=== PATIENT | male | born 1985 | race Caucasian/White ===

== ENCOUNTER 2016-09-19 18:54 | Emergency (ER) | payer SELFPAY ==
[~2016-09-19] VITALS: Ht 180.3 cm; Wt 92.1 kg
[2016-09-19 18:57] VITALS: TEMP 36.7; Ht 180.3 cm; Wt 92.1 kg
[2016-09-19] MEDS ORDERED: ALBUT/IPRATROP 3MG/0.5MG NEB 3 ML VIAL INH STA (19:11)
[2016-09-19] MEDS ORDERED: AZITHROMYCIN 250 MG TAB PO ONE (19:15)
--- NOTE | 2016-09-19 19:16 | EMERGENCY ROOM VISIT NOTE ---
History Report prepared by Scribe: Elis Soto Under the Supervision of: Dr. Reilly Dejesus M.D. First contact with patient: 19:04 Chief Complaint: RESPIRATORY PROBLEMS Stated Complaint: HAVING TROUBLE BREATHING History of Present Illness The patient is a 31 year old male who presents to the Emergency Room with complaints of worsening respiratory problems for the past 1 week. He admits he is a current smoker and tobacco chew user. He smokes approximately 2 packs of cigarettes every week. For the past 1 week, he reports that when he wakes up in the morning, he feels short of breath and starts "sweating and coughing up phlegm". The phlegm is clear to yellow in color. The patient states he has tried using inhalers and breathing treatments with minimal relief. Humidity and moisture in the air seem to worsen his symptoms. He denies any history of seasonal allergies or daily exposure to environmental irritants. The last time he saw his primary care doctor for his symptoms was approximately a year and a half ago. He denies any recent fevers, chills, nausea, vomiting, diarrhea or urinary symptoms. The patient admits to a family history of COPD. 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 A total of ten systems were reviewed and were otherwise negative. Past Medical & Surgical Medical Problems: (1) Acute Bronchitis (2) Anxiety and depression (3) Bipol I, Most Recent Episode (Or Current) Mixed, Moderate (4) Bronchitis (5) Kidney stones Family History COPD (chronic obstructive pulmonary disease) Diabetes mellitus Hypertension Kidney disease Kidney stones Social History Smoking Status: Former Smoker Alcohol Use: occasionally Drug Use: none Marital Status: single Housing Status: lives alone Occupation Status: unemployed Current/Historical Medications Scheduled Azithromycin (Zithromax), 250 MG PO DAILY Prednisone (Prednisone), 0 PO DAILY Scheduled PRN Albuterol (Ventolin Hfa), 2 PUFFS INH QID PRN for Wheezing Albuterol Sulfate (Proair Respiclick), 2 PUFFS PO DAILY PRN for Shortness of Breath Allergies Coded Allergies: Erythromycin (Verified Allergy, Unknown, 09/19/16) Physical Exam Vital Signs Date Time Temp Pulse Resp B/P (MAP) Pulse Ox O2 Delivery O2 Flow Rate FiO2 09/19/16 21:38 86 16 141/99 97 Room Air 09/19/16 19:30 110 16 137/89 96 Room Air 09/19/16 18:57 36.7 115 20 157/86 96 Room Air Physical Exam GENERAL: Awake, alert, well-appearing, in no distress HENT: Normocephalic, atraumatic. Oropharynx unremarkable. Dry mucous membranes. EYES: Normal conjunctiva. Sclera non-icteric. NECK: Supple. No nuchal rigidity. FROM. No JVD. RESPIRATORY: Decreased breath sounds at the bases, scattered wheezes throughout. CARDIAC: Regular rate, normal rhythm. Extremities warm and well perfused. Pulses equal. ABDOMEN: Soft, non-distended. No tenderness to palpation. No rebound or guarding. No masses. RECTAL: Deferred. MUSCULOSKELETAL: Chest examination reveals no tenderness. The back is symmetrical on inspection without obvious abnormality. There is no CVA tenderness to palpation. No joint edema. LOWER EXTREMITIES: Calves are equal size bilaterally and non-tender. No edema. No discoloration. NEURO: Normal sensorium. No sensory or motor deficits noted. SKIN: No rash or jaundice noted. Medical Decision & Procedures ER Provider Diagnostic Interpretation: Radiology results as stated below per my review and radiologist interpretation: CHEST ONE VIEW PORTABLE CLINICAL HISTORY: sob dyspnea COMPARISON STUDY: 01/21/2015 FINDINGS: The bones soft tissues and hemidiaphragms are normal. The cardiomediastinal silhouette is normal. The lungs are clear. The pulmonary vasculature is normal. IMPRESSION: Negative chest. The above report was generated using voice recognition software. It may contain grammatical, syntax or spelling errors. Electronically signed by: Angel Urbina M.D. 09/19/2016 7:30 PM Medications Administered Medications (Trade) Dose Ordered Sig/Corrine Route Start Time Stop Time Status Last Admin Dose Admin Prednisone (PredniSONE TAB) 60 mg NOW STAT PO 09/19/16 19:11 09/19/16 19:16 DC 09/19/16 19:29 60 MG Albuterol/ Ipratropium (Duoneb) 3 ml NOW STAT INH 09/19/16 19:11 09/19/16 19:16 DC 09/19/16 19:29 3 ML Azithromycin (Zithromax Tab) 500 mg NOW ONCE PO 09/19/16 19:15 09/19/16 19:16 DC 09/19/16 19:29 500 MG Albuterol (Ventolin Hfa Inhaler) 2 puffs NOW STAT INH 09/19/16 21:41 09/19/16 21:43 DC 09/19/16 21:58 2 PUFFS ED Course 1904: The patient was evaluated in room C5. A complete history and physical exam was performed. 1910: DuoNeb 3 ml INH, Prednisone 60 mg PO. 1914: Azithromycin 500 mg PO. 2113: Albuterol 2 puffs INH. 2124: I reevaluated the patient. He is feeling much better. I discussed his results and discharge instructions and he verbalized complete understanding and agreement. Medical Decision I reviewed the patient's past medical history, medications, and the nursing notes as described above. The differential diagnoses considered include undiagnosed COPD, smokers cough, pneumonia, bronchitis, pericarditis, ACS and CHF. The patient presents to the emergency department with sob per hpi. On arrival the patient is in NAD. AFVSS. On exam is diminished at bases with scattered wheezes. CXR unremarkable. Denies CP or worse sob when lying flat. No LE edema. Pericarditis,acs,chg not likely. Given duo, steroids, azithro with good effect. Likely undiagnosed copd/bronchitis in setting of longstanding smoking hx. Smoking cessation counseling provided. Findings and plan for follow-up d/w patient. Patient agreeable and d/c'd per discharge instructions. Medication Reconcilliation Current Medication List: was personally reviewed by me Blood Pressure Screening Patient's blood pressure: Elevated blood pressure Blood pressure disposition: Elevated BP felt to be situational Impression Primary Impression: Acute Bronchitis Additional Impression: COPD suggested by initial evaluation Scribe Attestation The scribe's documentation has been prepared under my direction and personally reviewed by me in its entirety. I confirm that the note above accurately reflects all work, treatment, procedures, and medical decision making performed by me. Departure Information Dispostion Home / Self-Care Prescriptions Albuterol (Ventolin Hfa) 60 Puffs/5400 Mcg Aers 2 PUFFS INH QID Y for Wheezing for 5 Days, #1 INHALER 2 Refills every 4-6 hours as needed. Prov: Reilly Dejesus M.D. 09/19/16 Prednisone (Prednisone) 20 Mg Tab 0 PO DAILY for 4 Days, #12 TAB 3 TABS DAILY FOR 2 DAYS, THEN 2 TABS DAILY FOR 2 DAYS, THEN 1 TAB DAILY FOR 2 DAYS, THEN 1/2 TAB DAILY FOR 2 DAYS. Prov: Reilly Dejesus M.D. 09/19/16 Azithromycin (Zithromax) 250 Mg Tab 250 MG PO DAILY, #4 TAB Prov: Reilly Dejesus M.D. 09/19/16 Referrals Erick Ovalles M.D. ([facility]) (PCP) Patient Instructions Bronchitis Acute Dc, COPD, COPD Inhalers, ED Smoking Cessation, [facility] Additional Instructions Please follow up with your primary care physician in the next 1-3 days for reevaluation and pulmonology referral. Otherwise, your exam and chest x-ray did not show signs of an emergent condition at this time. Take albuterol 2 puffs every 4 hours for the next 48 hours and then as needed thereafter. Prednisone and azithromycin daily as directed. Return to the emergency department for worsening symptoms as described in the accompanying instructions. Problem Qualifiers
--- NOTE | 2016-09-19 19:32 | DIAGNOSTIC IMAGING REPORT ---
CHEST ONE VIEW PORTABLE CLINICAL HISTORY: sob dyspnea COMPARISON STUDY: 01/21/2015 FINDINGS: The bones soft tissues and hemidiaphragms are normal. The cardiomediastinal silhouette is normal. The lungs are clear. The pulmonary vasculature is normal. IMPRESSION: Negative chest. The above report was generated using voice recognition software. It may contain grammatical, syntax or spelling errors. Electronically signed by: Angel Urbina M.D. 09/19/2016 7:30 PM Dictated Date/Time: 09/19/2016 7:30 PM
[2016-09-19] MEDS ORDERED: ALBU18002 PO (19:39)
[2016-09-19 21:38] VITALS: BP 141/99; PULSE 86; O2SAT 97
[2016-09-19] MEDS ORDERED: ALBUTEROL HFA 8 GM INHALER INH STA (21:41)
[2016-09-19] MEDS ORDERED: PRED20TA PO (22:00)
[2016-09-19] MEDS ORDERED: AZIT250T PO (22:00)
[2016-09-19] MEDS ORDERED: PRVHFAIN INH (22:00)
== END 2016-09-19 22:01 | disposition home or self-care (01) ==
LOC: C.EDB 18:55 → C.EDC 22:01
DX: J20.9 Acute bronchitis, unspecified (principal); F17.210 Nicotine dependence, cigarettes, uncomplicated; F17.220 Nicotine dependence, chewing tobacco, uncomplicated; Z87.442 Personal history of urinary calculi; Z82.5 Family history of asthma and other chronic lower respiratory diseases; Z83.3 Family history of diabetes mellitus; Z82.49 Family history of ischemic heart disease and other diseases of the circulatory system; Z84.1 Family history of disorders of kidney and ureter

== ENCOUNTER 2016-10-28 18:40 | Emergency (ER) | payer OTHER ==
[~2016-10-28] VITALS: Ht 180.3 cm; Wt 93.7 kg
[~2016-10-28 18:40] MED LIST: ALBU18002 PO; AZIT250T PO; PRVHFAIN INH
[2016-10-28 18:42] VITALS: Ht 180.3 cm; Wt 93.7 kg
[2016-10-28] MEDS ORDERED: SODIUM CHLORIDE 0.9% 1000ML 1,000 ML IV STA (19:08)
[2016-10-28] MEDS ORDERED: CEFTRIAXONE SOD INJ 1 GM ADDVIAL IV STA (19:08)
[2016-10-28] MEDS ORDERED: SULFAMETHOXAZOLE/TRIMETHOPRIM DS 800/160MG TAB PO STA ×2 (19:08→21:23)
[2016-10-28 20:04] LABS: BASO % 0.6 %; BASO ABS # 0.07 K/uL (0-0.2); COMPLETE YES; EOS % 9.7 %; HEMATOCRIT 44.3 % (42-52); IG% 0.2 %; LYMPH % 14.8 %; LYMPH ABS # 1.78 K/uL (1.2-3.4); MEAN CELL VOLUME 89.1 fL (80-100); MEAN CORPUSCULAR HEMOGLOBIN 29.4 pg (25-34); MEAN PLATELET VOLUME 9.5 fL (7.4-10.4); MONO % 5.8 %; NEUT % 68.9 %; PLATELET COUNT 279 K/uL (130-400); RED BLOOD COUNT 4.97 M/uL (4.7-6.1); WHITE BLOOD COUNT 12.03 K/uL (4.8-10.8)
--- NOTE | 2016-10-28 20:15 | DIAGNOSTIC IMAGING REPORT ---
CHEST ONE VIEW PORTABLE CLINICAL HISTORY: 31 years-old Male presenting with EVALUATE WEAKNESS. TECHNIQUE: Portable upright AP view of the chest was obtained. COMPARISON: 09/19/2016. FINDINGS: Cardiomediastinal silhouette normal. Lungs and pleural spaces clear. Osseous structures normal. Upper abdomen normal. IMPRESSION: 1. No acute cardiopulmonary disease. Electronically signed by: Kai Rice M.D. 10/28/2016 8:13 PM Dictated Date/Time: 10/28/2016 8:13 PM
[2016-10-28 20:17] LABS: ALT/SGPT 35 U/L (12-78); BLOOD UREA NITROGEN 14 mg/dl (7-18); BUN/CREATININE RATIO 9.8 (10-20); CALCIUM 9.6 mg/dl (8.5-10.1); CARBON DIOXIDE 30 mmol/L (21-32); CHLORIDE 100 mmol/L (98-107); GLUCOSE 108 mg/dl (70-99); MAGNESIUM 2.2 mg/dl (1.8-2.4); POTASSIUM 3.7 mmol/L (3.5-5.1); SODIUM 136 mmol/L (136-145)
[2016-10-28 20:27] LABS: ALKALINE PHOSPHATASE 116 U/L (45-117); AST/SGOT 29 U/L (15-37); THYROID STIMULATING HORMONE 0.404 uIu/ml (0.300-4.500)
[2016-10-28] MEDS ORDERED: SULF800T23 PO (21:29)
[2016-10-28] MEDS ORDERED: CEPH500C PO (21:29)
[2016-10-28] MEDS ORDERED: CEPHALEXIN MONOHYDRATE 250 MG CAP PO ONE (21:30)
[2016-10-28 21:46] VITALS: BP 153/94; PULSE 103; TEMP 36.7; O2SAT 99
--- NOTE | 2016-10-29 00:01 | EMERGENCY ROOM VISIT NOTE ---
History Report prepared by Deepakibtomasa: Elis Soto Under the Supervision of: Dr. Heath Sanchez M.D. First contact with patient: 18:49 Chief Complaint: WOUND INFECTION Stated Complaint: BITE INFECTED History of Present Illness The patient is a 31 year old male who presents to the Emergency Room with complaints of a possible wound infection on his left upper arm. He states "I think something bit me, but I'm not sure what". The bite appeared approximately 3 days ago and has become increasingly red and swollen over the past few days. He has been able to get some clear, minimally yellow drainage out when he squeezes the area. He rates his discomfort as a 1/10 and reports an over the counter salve has provided minor relief. This morning he felt nauseous but did not vomit. The patient admits to a history of IV drug use for the past month and a half but states he has not injected drugs in the past 3 days. He also admits to some "chest soreness" for the past day. He denies any LOC, headache, fevers, chills, diaphoresis, visual changes, neck pain, breathing difficulties, abdominal pain, back pain, melena, hematochezia, urinary symptoms, numbness, weakness, lymphadenopathy, rash, or other complaints. 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 A total of ten systems were reviewed and were otherwise negative. Past Medical & Surgical Medical Problems: (1) Acute Bronchitis (2) Anxiety and depression (3) Bipol I, Most Recent Episode (Or Current) Mixed, Moderate (4) Bronchitis (5) Kidney stones Family History COPD (chronic obstructive pulmonary disease) Diabetes mellitus Hypertension Kidney disease Kidney stones Social History Smoking Status: Former Smoker Alcohol Use: occasionally Drug Use: none Marital Status: single Housing Status: lives alone Occupation Status: unemployed Current/Historical Medications Scheduled Cephalexin Monohydrate (Keflex), 500 MG PO QID Sulfa/Trimethoprim (Bactrim Ds 800MG/160MG), 1 TAB PO BID Scheduled PRN Albuterol (Ventolin Hfa), 2 PUFFS INH QID PRN for Wheezing Albuterol Sulfate (Proair Respiclick), 2 PUFFS PO DAILY PRN for Shortness of Breath Allergies Coded Allergies: Erythromycin (Verified Allergy, Unknown, 10/28/16) Physical Exam Vital Signs Date Time Temp Pulse Resp B/P (MAP) Pulse Ox O2 Delivery O2 Flow Rate FiO2 10/28/16 21:46 36.7 103 18 153/94 99 10/28/16 20:32 106 18 138/81 98 Room Air 10/28/16 19:40 97 10/28/16 18:42 36.7 125 17 154/81 95 Room Air Physical Exam GENERAL: Awake, alert, well-appearing, in no distress HENT: Normocephalic, atraumatic. Oropharynx unremarkable. EYES: Normal conjunctiva. Sclera non-icteric. NECK: Supple. No nuchal rigidity. FROM. No JVD. RESPIRATORY: Clear to auscultation. CARDIAC: Tachycardic heart rate, normal rhythm. Extremities warm and well perfused. Pulses equal. ABDOMEN: Soft, non-distended. No tenderness to palpation. No rebound or guarding. No masses. RECTAL: Deferred. MUSCULOSKELETAL: Chest examination reveals no tenderness. The back is symmetrical on inspection without obvious abnormality. There is no CVA tenderness to palpation. No joint edema. LOWER EXTREMITIES: Calves are equal size bilaterally and non-tender. No edema. No discoloration. NEURO: Normal sensorium. No sensory or motor deficits noted. SKIN: Red, round patch to the left triceps area, scabbed area in the center, minimal induration. No rash or jaundice noted. Track johns at the base of left arm. Medical Decision & Procedures ER Provider Diagnostic Interpretation: Radiology results as stated below per my review and radiologist interpretation: CHEST ONE VIEW PORTABLE CLINICAL HISTORY: 31 years-old Male presenting with EVALUATE WEAKNESS. TECHNIQUE: Portable upright AP view of the chest was obtained. COMPARISON: 09/19/2016. FINDINGS: Cardiomediastinal silhouette normal. Lungs and pleural spaces clear. Osseous structures normal. Upper abdomen normal. IMPRESSION: 1. No acute cardiopulmonary disease. Electronically signed by: Kai Rice M.D. 10/28/2016 8:13 PM Laboratory Results 10/28/16 19:45 Red Blood Count 4.97, Mean Corpuscular Volume 89.1, Mean Corpuscular Hemoglobin 29.4, Mean Corpuscular Hemoglobin Concent 33.0, Mean Platelet Volume 9.5, Neutrophils (%) (Auto) 68.9, Lymphocytes (%) (Auto) 14.8, Monocytes (%) (Auto) 5.8, Eosinophils (%) (Auto) 9.7, Basophils (%) (Auto) 0.6, Neutrophils # (Auto) 8.28, Lymphocytes # (Auto) 1.78, Monocytes # (Auto) 0.70, Eosinophils # (Auto) 1.17, Basophils # (Auto) 0.07 10/28/16 19:45 Test 10/28/16 19:45 White Blood Count 12.03 K/uL (4.8-10.8) Red Blood Count 4.97 M/uL (4.7-6.1) Hemoglobin 14.6 g/dL (14.0-18.0) Hematocrit 44.3 % (42-52) Mean Corpuscular Volume 89.1 fL (80-100) Mean Corpuscular Hemoglobin 29.4 pg (25-34) Mean Corpuscular Hemoglobin Concent 33.0 g/dl (32-36) Platelet Count 279 K/uL (130-400) Mean Platelet Volume 9.5 fL (7.4-10.4) Neutrophils (%) (Auto) 68.9 % Lymphocytes (%) (Auto) 14.8 % Monocytes (%) (Auto) 5.8 % Eosinophils (%) (Auto) 9.7 % Basophils (%) (Auto) 0.6 % Neutrophils # (Auto) 8.28 K/uL (1.4-6.5) Lymphocytes # (Auto) 1.78 K/uL (1.2-3.4) Monocytes # (Auto) 0.70 K/uL (0.11-0.59) Eosinophils # (Auto) 1.17 K/uL (0-0.5) Basophils # (Auto) 0.07 K/uL (0-0.2) RDW Standard Deviation 39.7 fL (36.4-46.3) RDW Coefficient of Variation 12.3 % (11.5-14.5) Immature Granulocyte % (Auto) 0.2 % Immature Granulocyte # (Auto) 0.03 K/uL (0.00-0.02) Anion Gap 6.0 mmol/L (3-11) Est Creatinine Clear Calc Drug Dose 89.4 ml/min Estimated GFR () 77.0 Estimated GFR (Non- 66.5 BUN/Creatinine Ratio 9.8 (10-20) Calcium Level 9.6 mg/dl (8.5-10.1) Magnesium Level 2.2 mg/dl (1.8-2.4) Total Bilirubin 0.4 mg/dl (0.2-1) Direct Bilirubin 0.1 mg/dl (0-0.2) Aspartate Amino Transf (AST/SGOT) 29 U/L (15-37) Alanine Aminotransferase (ALT/SGPT) 35 U/L (12-78) Alkaline Phosphatase 116 U/L (45-117) Troponin I < 0.015 ng/ml (0-0.045) Total Protein 7.3 gm/dl (6.4-8.2) Albumin 3.9 gm/dl (3.4-5.0) Thyroid Stimulating Hormone (TSH) 0.404 uIu/ml (0.300-4.500) Laboratory results reviewed by me Medications Administered Medications (Trade) Dose Ordered Sig/Corrine Route Start Time Stop Time Status Last Admin Dose Admin Sodium Chloride 1,000 ml @ 999 mls/hr Q1H1M STAT IV 10/28/16 19:08 10/28/16 20:08 DC 10/28/16 20:10 999 MLS/HR Ceftriaxone Sodium (Rocephin Inj) 1 gm NOW STAT IV 10/28/16 19:08 10/28/16 19:12 DC 10/28/16 20:10 1 GM Trimethoprim/ Sulfamethoxazole (Septra Ds 800/ 160MG Tab) 1 tab NOW STAT PO 10/28/16 19:08 10/28/16 19:12 DC 10/28/16 20:10 1 TAB Trimethoprim/ Sulfamethoxazole (Septra Ds 800/ 160MG Tab) 1 tab NOW STAT PO 10/28/16 21:23 10/28/16 21:25 DC 10/28/16 21:41 1 TAB Cephalexin Monohydrate (Keflex Cap) 500 mg NOW ONCE PO 10/28/16 21:30 10/28/16 21:31 DC 10/28/16 21:42 500 MG ECG Indication: chest pain Rate (beats per minute): 108 Rhythm: sinus tachycardia Findings: no acute ischemic change, no ectopy ED Course 190: The patient was evaluated in room C2. A complete history and physical exam was performed. 1907: Septra Ds 800/160 mg 1 tab PO, Rocephin 1 gm IV, NSS 1000 ml @ 999 mls/hr IV. 2111: I reevaluated the patient. His redness is slightly improved and he feels well. I discussed his results and discharge instructions and he verbalized complete understanding and agreement. 2122: Septra Ds 800/160 mg 1 tab PO. 2129: Keflex 500 mg PO. Medical Decision Triage Nursing notes reviewed and agree them. The patient's history was concerning for swelling and redness of the skin. Differential diagnosis: Etiologies such as cellulitis, DVT, necrotizing fasciitis, abscess, MRSA infection, dermatitis, drug eruption, pneumonia, cardiac sources, as well as others were entertained.. Physical examination: The physical examination was consistent with cellulitis. No fluctuance. The patient and already lanced the area with a knife at home. ER treatment provided: IV saline hydration IV Rocephin Bactrim On reassessment the patient felt better. The redness improved. The patient had a decrease in his heart rate. Diagnostics interpreted by me: The labs revealed a mild leukocytosis on CBC. Chemistry panel unremarkable. Troponin negative. A single troponin was done as the patient has had chest discomfort for the entire day. ECG revealed a sinus tachycardia without ischemia. No pericarditis. Imaging studies: Chest x-ray as above. This appears to be isolated cellulitis. The patient has a history of IV drug abuse. He will be treated with Bactrim and Keflex. There is no fluctuance to warrant incision and drainage at this time. If he worsens he will be back. He will also follow up with his primary physician first thing next week. I did ask him to discuss his drug use with his primary physician as he states he has not notified him yet. The patient was counseled. I gave my usual and customary discussion regarding this issue. By the evaluation outlined above emergent etiologies such as abscess, necrotizing fasciitis, DVT, as well as others were deemed relatively unlikely. The patient was informed about the findings as listed above. All questions were answered and he was pleased with the treatment. Return instructions were outlined and the patient was discharged in stable condition. Outpatient prescription management: Keflex Bactrim Referral: The patient was referred back to his primary care physician for follow-up in 2 to 3 days for a recheck of the current condition. Medication Reconcilliation Current Medication List: was personally reviewed by me Blood Pressure Screening Patient's blood pressure: Normal blood pressure Blood pressure disposition: Did not require urgent referral Impression Primary Impression: Cellulitis Additional Impression: IVDU (intravenous drug user) Scribe Attestation The scribe's documentation has been prepared under my direction and personally reviewed by me in its entirety. I confirm that the note above accurately reflects all work, treatment, procedures, and medical decision making performed by me. Departure Information Dispostion Home / Self-Care Prescriptions Sulfa/Trimethoprim (Bactrim Ds 800MG/160MG) Tab 1 TAB PO BID, #18 TAB Prov: Heath Sanchez MD 10/28/16 Cephalexin Monohydrate (Keflex) 500 Mg Cap 500 MG PO QID, #39 CAP Prov: Heath Sanchez MD 10/28/16 Referrals Erick Ovalles M.D. ([facility]) (PCP) Patient Instructions Cellulitis - [facility], ED Drug Abuse General, [facility] Additional Instructions CELLULITIS INSTRUCTIONS: Cephalexin(Keflex) 500mg: Take one pill four times daily for 10 days for your skin infection. All antibiotics can cause diarrhea. If this occurs and you feel worse or it does not resolve in 1-2 days follow up with your doctor or return to the Emergency Department as this could be signs of serious underlying problems. Any medication can cause an allergic reaction, stop the pills immediately and return to the ER for rash, hives, breathing difficulties, or swelling. Trimethoprim-Sulfamethoxazole(Bactrim DS): Take one pill twice daily for 10 days for your skin infection. All antibiotics can cause diarrhea. If this occurs and you feel worse or it does not resolve in 1-2 days follow up with your doctor or return to the Emergency Department as this could be signs of serious underlying problems. Any medication can cause an allergic reaction, stop the pills immediately and return to the ER for rash, hives, breathing difficulties, or swelling. Ibuprofen(Motrin, Advil) may be used for fever or pain. Use 600mg every six hours as needed. Take with food. Avoid using more than 2400mg in a 24 hour period. Do not use 2400mg per day for more than three consecutive days without physician direction. Prolonged inappropriate use can lead to stomach upset or ulcers. (AND/OR) Acetaminophen(Tylenol) may be used for fever or pain. Use 1000mg every six hours as needed. Avoid using more than 4000mg in a 24 hour period. Warm compresses to the affected area 4 times daily for 15-20 minutes. Rest and drink plenty of fluids. Refrain from any additional drug use. Return to the ER for severe pain, persistent fevers, spreading redness, or any worsening of your condition. Follow up with your primary physician Monday for a recheck of the current condition. Problem Qualifiers
== END 2016-10-28 21:46 | disposition home or self-care (01) ==
LOC: C.EDB 18:41 → C.EDC 21:46
DX: L03.114 Cellulitis of left upper limb (principal); F19.10 Other psychoactive substance abuse, uncomplicated; Z87.442 Personal history of urinary calculi; Z87.891 Personal history of nicotine dependence; Z83.3 Family history of diabetes mellitus; Z82.49 Family history of ischemic heart disease and other diseases of the circulatory system; Z84.1 Family history of disorders of kidney and ureter; Z82.5 Family history of asthma and other chronic lower respiratory diseases

== ENCOUNTER 2017-03-10 08:44 | Emergency (ER) | payer OTHER ==
[~2017-03-10] VITALS: Ht 180.3 cm; Wt 101.5 kg
[~2017-03-10 08:44] MED LIST changes: -AZIT250T PO; +CEPH500C PO; +SULF800T23 PO
[2017-03-10 08:50] VITALS: TEMP 36.6; Ht 180.3 cm; Wt 101.5 kg
[2017-03-10 09:29] LABS: HEMATOCRIT 43.7 % (42-52); HEMOGLOBIN 15.2 g/dL (14.0-18.0); MEAN CELL VOLUME 87.6 fL (80-100); MEAN CORPUSCULAR HEMOGLOBIN 30.5 pg (25-34); MEAN CORPUSCULAR HGB CONC 34.8 g/dl (32-36); MEAN PLATELET VOLUME 9.6 fL (7.4-10.4); PLATELET COUNT 221 K/uL (130-400); RED CELL DISTRIBUTION WIDTH CV 13.2 % (11.5-14.5); RED CELL DISTRIBUTION WIDTH SD 41.8 fL (36.4-46.3); WHITE BLOOD COUNT 8.09 K/uL (4.8-10.8)
[2017-03-10] MEDS ORDERED: SODIUM CHLORIDE 0.9% 1000ML 1,000 ML IV STA (09:37)
[2017-03-10] MEDS ORDERED: HYDROmorphone INJ 1 MG/ML SYR IV STA ×2 (09:37→10:13)
[2017-03-10] MEDS ORDERED: ONDANSETRON INJ 2 MG/ML 2 ML VIAL IV STA (09:37)
[2017-03-10 09:39] LABS: CALCIUM 9.8 mg/dl (8.5-10.1); CREATININE 1.4 mg/dl (0.60-1.40); POTASSIUM 3.7 mmol/L (3.5-5.1)
--- NOTE | 2017-03-10 09:43 | EMERGENCY ROOM VISIT NOTE ---
History Report prepared by Kortney: Reza Acuna Under the Supervision of: Dr. Ela Stallings M.D. First contact with patient: 09:34 Chief Complaint: ABDOMINAL PAIN Stated Complaint: ABDOMINAL PAIN Nursing Triage Summary: Pain 10/10 right flank since 0600. Difficulty urinating x2 days. Retention, urgency, and not emptying bladder properly. Hx kidney stones. History of Present Illness The patient is a 31 year old male who presents to the Emergency Room with complaints of severe and constant right lower quadrant abdominal pain that began this morning at 0600, 3.5 hours prior to arrival. The patient states that he had a 30 minute episode of the same pain last night, which resolved spontaneously. He also mentioned that he has been having increased urinary urgency, but has been having a difficult time voiding. He feels the need to go, but only gets out a few drops. There is some burning when he is able to void, but he denies any discharge. He denies any fevers or vomiting, but he is nauseous. The patient admits to using IV-meth yesterday. 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 A total of 10 systems reviewed and were otherwise negative. Past Medical & Surgical Medical Problems: (1) Acute Bronchitis (2) Anxiety and depression (3) Bipol I, Most Recent Episode (Or Current) Mixed, Moderate (4) Bronchitis (5) Kidney stones Family History COPD (chronic obstructive pulmonary disease) Diabetes mellitus Hypertension Kidney disease Kidney stones Social History Smoking Status: Never Smoker Alcohol Use: occasionally Drug Use: none Marital Status: single Housing Status: lives alone Occupation Status: unemployed Current/Historical Medications Scheduled PRN Albuterol (Ventolin Hfa), 2 PUFFS INH QID PRN for Wheezing Hydrocodone/Acetaminophen 5MG/325MG (Comins 5MG/325MG), 1 TABLET PO Q6 PRN for Pain Allergies Coded Allergies: Erythromycin (Verified Allergy, Unknown, 03/10/17) Physical Exam Vital Signs Date Time Temp Pulse Resp B/P (MAP) Pulse Ox O2 Delivery O2 Flow Rate FiO2 03/10/17 12:02 112 18 148/99 96 Room Air 03/10/17 08:50 36.6 88 20 158/96 94 Room Air Physical Exam Vital signs reviewed. General: Patient appears to be in pain and is uncomfortable. HEENT: No scleral icterus, PERRLA, neck supple. Atraumatic. Cardiovascular: Regular rate and rhythm, no extra sounds. Pulmonary: Clear to auscultation bilaterally, normal work of breathing. Abdomen: Soft, nontender, nondistended, positive bowel sounds. Musculoskeletal: Atraumatic, no peripheral edema. No CVA tenderness. Neurologic: Patient awake alert and oriented x 3 Skin: Warm, dry, no rash Medical Decision & Procedures ER Provider Diagnostic Interpretation: Radiology results as stated below per my review and radiologist interpretation: ABD/PELVIS NO IV OR ORAL CONT CT DOSE: 967.73 mGycm HISTORY: Flank pain R flank pain, unable to void TECHNIQUE: Multiaxial CT images of the abdomen and pelvis were performed without contrast. A dose lowering technique was utilized adhering to the principles of ALARA. COMPARISON STUDY: 06/18/2008 FINDINGS: Lung bases are clear. Liver spleen and pancreas are unremarkable. Gallbladder is negative for distention. Bilateral nephrocalcinosis is present and is progressive compared to the prior study of 2008. Mild right hydroureteronephrosis. 3.5 mm obstructing calculus distal right ureter immediately proximal to the right ureterovesical junction. Bladder is relatively collapsed. Bowel pattern is considered nonobstructive. The appendix is normal. IMPRESSION: 1. Obstructing 3.5 mm calculus distal right ureter immediately proximal to the right ureterovesical junction. 2. Mild right hydroureteronephrosis. 3. Bilateral nephrocalcinosis progressive compared to the prior exam. The above report was generated using voice recognition software. It may contain grammatical, syntax or spelling errors. Electronically signed by: Angel Urbina M.D. 03/10/2017 10:14 AM Dictated Date/Time: 03/10/2017 10:11 AM Laboratory Results 03/10/17 09:10 03/10/17 09:10 Test 03/10/17 09:10 03/10/17 09:15 Red Blood Count 4.99 M/uL (4.7-6.1) Mean Corpuscular Volume 87.6 fL (80-100) Mean Corpuscular Hemoglobin 30.5 pg (25-34) Mean Corpuscular Hemoglobin Concent 34.8 g/dl (32-36) RDW Standard Deviation 41.8 fL (36.4-46.3) RDW Coefficient of Variation 13.2 % (11.5-14.5) Mean Platelet Volume 9.6 fL (7.4-10.4) Anion Gap 11.0 mmol/L (3-11) Est Creatinine Clear Calc Drug Dose 92.7 ml/min Estimated GFR () 77.0 Estimated GFR (Non- 66.5 BUN/Creatinine Ratio 11.8 (10-20) Calcium Level 9.8 mg/dl (8.5-10.1) Urine Color DK YELLOW Urine Appearance CLEAR (CLEAR) Urine pH 5.0 (4.5-7.5) Urine Specific [place] 1.037 (1.000-1.030) Urine Protein 2+ (NEG) Urine Glucose (UA) NEG (NEG) Urine Ketones 3+ (NEG) Urine Occult Blood 3+ (NEG) Urine Nitrite NEG (NEG) Urine Bilirubin NEG (NEG) Urine Urobilinogen NEG (NEG) Urine Leukocyte Esterase NEG (NEG) Urine WBC (Auto) 1-5 /hpf (0-5) Urine RBC (Auto) >30 /hpf (0-4) Urine Hyaline Casts (Auto) 1-5 /lpf (0-5) Urine Epithelial Cells (Auto) 20-30 /lpf (0-5) Urine Bacteria (Auto) NEG (NEG) Laboratory results per my review. Medications Administered Medications (Trade) Dose Ordered Sig/Corrine Route Start Time Stop Time Status Last Admin Dose Admin Sodium Chloride 1,000 ml @ 999 mls/hr Q1H1M STAT IV 03/10/17 09:37 03/10/17 10:37 DC 03/10/17 09:47 999 MLS/HR Hydromorphone HCl (Dilaudid Inj) 1 mg NOW STAT IV 03/10/17 09:37 03/10/17 09:39 DC 03/10/17 09:47 1 MG Ondansetron HCl (Zofran Inj) 4 mg NOW STAT IV 03/10/17 09:37 03/10/17 09:39 DC 03/10/17 09:47 4 MG Hydromorphone HCl (Dilaudid Inj) 1 mg NOW STAT IV 03/10/17 10:13 03/10/17 10:15 DC 03/10/17 10:20 1 MG ED Course 0937: Past medical records reviewed. The patient was evaluated in room C1B. A complete history and physical examination was performed. 0937: Ordered Zofran 4 mg IV, Dilaudid 1 mg IV, Sodium Chloride 1000 mL @ 999 mL /hr IV. 1013: Ordered Dilaudid 1 mg IV. 1142: Upon reevaluation, the patient appeared to have improvement of his symptoms. I discussed findings with him. He verbalized agreement of the treatment plan. The Patient was discharged home. Medical Decision Differential diagnosis: Etiologies such as renal colic, appendicitis, diverticulitis, mesenteric ischemia, aortic pathology, infections, inflammatory bowel disease, PUD, biliary pathology, UTI, as well as others were entertained. This patient was evaluated and appeared to be in significant discomfort. Physical examination is fairly unrevealing otherwise. Patient was given IV Dilaudid and Zofran. He was hydrated with normal saline solution. CT scan of the abdomen and pelvis reveals a 3.5 mm stone in the distal right ureter. The patient does have nephrolithiasis visualized bilaterally. Urinalysis reveals evidence of blood but no evidence of infection. The patient was informed of the findings. He was referred to Dr. Pardo of urology. He will continue ibuprofen as needed for pain. He was given a prescription for Comins to be used sparingly as needed. Patient will return to the ER for worsening of symptoms or any medical concerns. [place] Drug Monitoring Program Search Results: patient reviewed within database, no issues identified Blood Pressure Screening Patient's blood pressure: Elevated blood pressure Blood pressure disposition: Elevated BP felt to be situational Impression Primary Impression: Right ureteral stone Scribe Attestation The scribe's documentation has been prepared under my direction and personally reviewed by me in its entirety. I confirm that the note above accurately reflects all work, treatment, procedures, and medical decision making performed by me. Departure Information Dispostion Home / Self-Care Prescriptions Hydrocodone/Acetaminophen 5MG/325MG (Comins 5MG/325MG) Tab 1 TABLET PO Q6 Y for Pain, #10 TAB Prov: Ela Stallings M.D. 03/10/17 Referrals Erick Ovalles M.D. ([facility]) (PCP) Forms Call Back Authorization, HOME CARE DOCUMENTATION FORM, IMPORTANT VISIT INFORMATION Patient Instructions My [facility] Additional Instructions Diagnosis: Right ureteral kidney stone Ibuprofen 600 mg every 6 hours as needed for pain with food. Comins one to 2 tabs every 6 hours as needed for severe pain. Do not drive after taking this medication. Do not use Tylenol with this medication. Drink plan clear fluids. Follow-up with urology, Dr. Pardo, within the next week if symptoms persist. Return to the ER for worsening of symptoms, fever or any medical concerns.
--- NOTE | 2017-03-10 10:16 | DIAGNOSTIC IMAGING REPORT ---
ABD/PELVIS NO IV OR ORAL CONT CT DOSE: 967.73 mGycm HISTORY: Flank pain R flank pain, unable to void TECHNIQUE: Multiaxial CT images of the abdomen and pelvis were performed without contrast. A dose lowering technique was utilized adhering to the principles of ALARA. COMPARISON STUDY: 06/18/2008 FINDINGS: Lung bases are clear. Liver spleen and pancreas are unremarkable. Gallbladder is negative for distention. Bilateral nephrocalcinosis is present and is progressive compared to the prior study of 2008. Mild right hydroureteronephrosis. 3.5 mm obstructing calculus distal right ureter immediately proximal to the right ureterovesical junction. Bladder is relatively collapsed. Bowel pattern is considered nonobstructive. The appendix is normal. IMPRESSION: 1. Obstructing 3.5 mm calculus distal right ureter immediately proximal to the right ureterovesical junction. 2. Mild right hydroureteronephrosis. 3. Bilateral nephrocalcinosis progressive compared to the prior exam. The above report was generated using voice recognition software. It may contain grammatical, syntax or spelling errors. Electronically signed by: Angel Urbina M.D. 03/10/2017 10:14 AM Dictated Date/Time: 03/10/2017 10:11 AM
[2017-03-10] MEDS ORDERED: HYDR-5688 PO (11:32)
[2017-03-10 12:02] VITALS: BP 148/99; PULSE 112; O2SAT 96
== END 2017-03-10 12:14 | disposition home or self-care (01) ==
LOC: C.EDB 08:46 → C.EDC 12:14
DX: N21.1 Calculus in urethra (principal); F41.9 Anxiety disorder, unspecified; F32.9 Major depressive disorder, single episode, unspecified; F31.9 Bipolar disorder, unspecified; Z83.3 Family history of diabetes mellitus; Z82.49 Family history of ischemic heart disease and other diseases of the circulatory system

== ENCOUNTER 2017-03-13 13:56 | Emergency (ER) | payer OTHER ==
[~2017-03-13] VITALS: Ht 180.3 cm; Wt 98.1 kg
[~2017-03-13 13:56] MED LIST changes: -ALBU18002 PO; -CEPH500C PO; +HYDR-5688 PO; -SULF800T23 PO
[2017-03-13 14:25] VITALS: TEMP 37; Ht 180.3 cm; Wt 98.1 kg
--- NOTE | 2017-03-13 15:14 | DIAGNOSTIC IMAGING REPORT ---
R WRIST W/NAVICULAR MIN 3 VIEWS, R HAND MIN 3 VIEWS ROUTINE CLINICAL HISTORY: 31 years-old Male presenting with R hand pain s/p fall. TECHNIQUE: Frontal, bilateral oblique, scaphoid, and lateral views of the right wrist as well as frontal, oblique, and lateral views of the right hand were obtained. COMPARISON: None. FINDINGS: Right wrist: Osseous excrescence arising from the distal ulna is slightly directed towards the joint and is incompletely characterized regarding potential continuity with the medullary cavity. This is indeterminate but may represent an osteochondroma. No acute fracture or malalignment. No degenerative change. Right hand: Minimally displaced extra articular fracture of the base of the fifth metacarpal. Overlying soft tissue swelling noted. No malalignment at the fifth carpometacarpal articulation. Slight apex dorsal angulation. IMPRESSION: 1. Minimally displaced extra articular fracture of the base of the fifth metacarpal with minimal apex dorsal angulation. 2. No acute osseous injury of the right wrist. Electronically signed by: Kai Rice M.D. 03/13/2017 3:13 PM Dictated Date/Time: 03/13/2017 3:10 PM
--- NOTE | 2017-03-13 16:03 | EMERGENCY ROOM VISIT NOTE ---
History First contact with patient: 14:31 Chief Complaint: HAND PAIN/INJURY Stated Complaint: FELL OFF A TRUCK TAILGATE - HIT HAND History of Present Illness The patient is a 31 year old male who presents to the Emergency Room with complaints of "fell off a truck tibia, hand". The patient states that this morning he fell from a tailgate and injured his right hand. He notes pain in the dorsal aspect of the palmar aspect base of the right fourth and fifth digit. He rates the pain as a 7/10. He notes no numbness or tingling. Review of Systems A complete 6-point Review of Systems was discussed with the patient, with pertinent positives and negatives listed in the History of Present Illness. All remaining Review of Systems questions can be considered negative unless otherwise specified. Past Medical/Surgical History Medical Problems: (1) Acute Bronchitis (2) Anxiety and depression (3) Bipol I, Most Recent Episode (Or Current) Mixed, Moderate (4) Bronchitis (5) Kidney stones Family History COPD (chronic obstructive pulmonary disease) Diabetes mellitus Hypertension Kidney disease Kidney stones Social History Smoking Status: Light Tobacco Smoker Alcohol Use: occasionally Drug Use: none Marital Status: single Housing Status: lives alone Occupation Status: unemployed Current/Historical Medications Scheduled PRN Albuterol (Ventolin Hfa), 2 PUFFS INH QID PRN for Wheezing Hydrocodone/Acetaminophen 5MG/325MG ([place] 5MG/325MG), 1 TABLET PO Q6 PRN for Pain Hydrocodone/Acetaminophen 5MG/325MG ([place] 5MG/325MG), 1-2 TABLET PO Q4H PRN for Pain Physical Exam Vital Signs Date Time Temp Pulse Resp B/P (MAP) Pulse Ox O2 Delivery O2 Flow Rate FiO2 03/13/17 16:15 91 18 159/89 98 03/13/17 14:25 37.0 104 16 172/96 97 Room Air Physical Exam VITAL SIGNS - Vital signs and nursing notes were reviewed. Stable. GENERAL - 31-year-old male appearing his stated age who is in no acute distress. Communicates well with provider and answers questions appropriately. EXTREMITIES - No clubbing or peripheral cyanosis. No pretibial edema present.R hand edema and tenderness over base of 4th adn 5th metacarpal. +5/5 strength noted in UE/LE bilaterally. Medical Decision & Procedures ER Provider Diagnostic Interpretation: R WRIST W/NAVICULAR MIN 3 VIEWS, R HAND MIN 3 VIEWS ROUTINE CLINICAL HISTORY: 31 years-old Male presenting with R hand pain s/p fall. TECHNIQUE: Frontal, bilateral oblique, scaphoid, and lateral views of the right wrist as well as frontal, oblique, and lateral views of the right hand were obtained. COMPARISON: None. FINDINGS: Right wrist: Osseous excrescence arising from the distal ulna is slightly directed towards the joint and is incompletely characterized regarding potential continuity with the medullary cavity. This is indeterminate but may represent an osteochondroma. No acute fracture or malalignment. No degenerative change. Right hand: Minimally displaced extra articular fracture of the base of the fifth metacarpal. Overlying soft tissue swelling noted. No malalignment at the fifth carpometacarpal articulation. Slight apex dorsal angulation. IMPRESSION: 1. Minimally displaced extra articular fracture of the base of the fifth metacarpal with minimal apex dorsal angulation. 2. No acute osseous injury of the right wrist. Electronically signed by: Kai Rice M.D. 03/13/2017 3:13 PM Dictated Date/Time: 03/13/2017 3:10 PM Medical Decision Patient was seen and evaluated as above. He presents to us today with hand pain. It is on the right hand. X-ray reveals fracture. He'll be referred orthopedics post or gutter splinting here. He'll be given [place] for pain. Review of the [employer] drug monitoring system reveals a recent prescription with this was for kidney stones which was verified. He is to follow with Dr. Matthew. He was educated upon management, educated upon worrisome symptoms which to return, had worsened in spite of discharge, and was discharged home in good condition. In the evaluation and treatment of this patient, the following differential diagnoses were considered: Wrist Sprain, Wrist Fracture, Wrist Dislocation, Scapholunate Dissociation, Carpal Fracture, Metacarpal Fracture, Radial Styloid Process Fracture, Ulnar Styloid Process Fracture, or Carpal Tunnel Syndrome. Impression Primary Impression: Hand fracture Departure Information Dispostion Home / Self-Care Condition GOOD Prescriptions Hydrocodone/Acetaminophen 5MG/325MG ([place] 5MG/325MG) Tab 1-2 TABLET PO Q4H Y for Pain, #15 TAB For Initial Treatment Prov: Galen Rae, SETH 03/13/17 Referrals Erick Ovalles M.D.([facility]) (PCP) Heath Matthew, Leonela Calvillo MD Patient Instructions My [facility] Additional Instructions You have been treated in the Emergency Department for Wrist Pain. You have been prescribed [place] to be used for pain control. This is a narcotic medication. You cannot drive or consume alcohol while on this medicine. This medicine should only be used for pain that cannot be controlled with over-the- counter pain medicines. For pain control, you can use the following onxj-djj-umwtort medicines: - Regular strength (325mg/tab) Tylenol (acetaminophen) 2 tabs every 4-6 hours as needed. Do not exceed 12 tablets in a 24 hour period. Avoid taking more than 3 grams (3000 mg) of Tylenol per day. This includes any other sources of acetaminophen you may take on a regular basis. Please no tylenol with this. - Regular strength (200 mg/tab) Advil (ibuprofen) 1-2 tabs every 4-6 hours as needed. Do not exceed a dose of 3200 mg per day. If this is a recent injury (<24 hrs), ice can be applied to the area of pain for the first 3 days to help decrease pain and inflammation. You have been provided the number for an Orthopaedic Surgeon. You should call this number as soon as possible to establish a follow-up visit from today's Emergency Department visit. Keep the brace/splint in place until evaluated by Orthopedics. Return to the Emergency Department if your current symptoms worsen despite treatment course outlined above, or if you develop any of the following symptoms : intractable pain despite aforementioned treatment course or new onset of numbness or tingling of the fingers.
[2017-03-13] MEDS ORDERED: HYDR-5688 PO (16:04)
[2017-03-13 16:15] VITALS: BP 159/89; PULSE 91; O2SAT 98
== END 2017-03-13 16:13 | disposition home or self-care (01) ==
LOC: C.EDB 13:57 → C.EDD 16:13
DX: S62.316A Displaced fracture of base of fifth metacarpal bone, right hand, initial encounter for closed fracture (principal); W17.89XA Other fall from one level to another, initial encounter; Y92.89 Other specified places as the place of occurrence of the external cause; F32.9 Major depressive disorder, single episode, unspecified; F41.9 Anxiety disorder, unspecified; F31.9 Bipolar disorder, unspecified; Z87.442 Personal history of urinary calculi; Z83.3 Family history of diabetes mellitus; Z82.49 Family history of ischemic heart disease and other diseases of the circulatory system; Z84.1 Family history of disorders of kidney and ureter; Z83.6 Family history of other diseases of the respiratory system; Z72.0 Tobacco use

== ENCOUNTER → 2017-04-12 | Outpatient (CLI) | payer OTHER | END | disposition home or self-care (01) | LOC: C.RDSM 19:28 | PROVIDERS: ATTEND Family Medicine Sports Medicine | DX: S62.91XA Unspecified fracture of right hand, initial encounter for closed fracture (principal); X58.XXXA Exposure to other specified factors, initial encounter ==

== ENCOUNTER 2019-01-24 08:48 | Observation (INO) ==
--- NOTE | 2018-12-24 13:31 | Anesthesiology Consultation ---
Date of Service December 24, 2018 Assessment & Plan (1) Encounter for pre-operative examination: Chart Review Chart Review: Acceptable Risk for Surgery History Surgery Operation Date: 12/31/18 12:20 Proposed Procedures p L4-L5 Discectomy - Heath Matthew DO Height/Weight Height: 5 ft 11 in Weight: 88.451 kg Allergies Allergy/AdvReac Type Severity Reaction Status Date / Time erythromycin base Allergy Mild Rash Verified 12/21/18 09:24 Medications Home Medications Medication Instructions Recorded Confirmed Last Taken methylprednisolone 4 mg tablets in 4 mg PO . DIRECTED #21 ea 12/19/18 12/21/18 Unknown a dose pack ketorolac 10 mg PO Q6H PRN 12/21/18 12/21/18 Unknown tramadol 50 mg tablet 50 - 100 mg PO Q6H PRN #24 tab 12/24/18 Unknown Past Medical History Medical History Kidney stones (Resolved) Bipolar disorder (Acute) IVDU (intravenous drug user) (Acute) LAST USED DECEMBER 06, 2018 (CRYSTAL METH) History of depression Hx of bronchitis Hx of esophageal reflux Lower extremity numbness RT LE NUMBNESS D/T LUMBAR DISC BULGING PVC (premature ventricular contraction) HX [place] teeth removed Past Family History Family History Grandmother (Maternal) Diabetes Other Cancer Heart disease Hypertension Kidney disease Lung disease Past Surgical History Surgical History H/O hand surgery LEFT HAND RING FINGER TENDON RT HAND RING/PINKY FINGER TENDON/MUSCLE REPAIR History of herniorrhaphy INGUINAL WITH MESH Social History Smoking Status: Former smoker tobacco type: cigarettes and smokeless tobacco Smoking cigarettes per day: WILL OCAS. SMOKE "EVERY ONCE IN A WHILE" Do You Dip or Chew Tobacco: Yes (3 CANS WEEKLY) Hx Alcohol Use: No Alcohol Intake Frequency Comment: STOPPED DRINKING 2016 Hx Substance Use: Yes substance use type: marijuana and IV drugs Substance Use Type Other:: CRYSTAL METH AND MARIJUANA Last Used Substance Other:: CRYSTAL METH (LAST USED NOVEMBER 2018) MARIJAUNA LAST USED 3 DAYS AGO Testing Laboratory Results Laboratory Tests 12/13/18 12/13/18 17:36 17:36 WBC 7.12 Hgb 14.8 Hct 44.2 Plt Count 277 Potassium 4.0 Creatinine 1.18
--- NOTE | 2019-01-23 13:55 | History and Physical Report ---
DATE OF ADMISSION: 01/24/2019 CHIEF COMPLAINT: Back and lower extremity difficulty on the right. HISTORY OF PRESENT ILLNESS: Alec is delightful. He is 33. He is miserable. He has back pain, lower extremity weakness, dorsiflexion weakness and toe weakness with a large herniation L4-L5. He is set up for lumbar spine discectomy L4-L5. PAST MEDICAL HISTORY: Negative for hypertension, COPD, diabetes mellitus. No carcinoma. PAST SURGICAL HISTORY: Finger surgery, hernia surgery. ALLERGIES: ERYTHROMYCIN. FAMILY HISTORY: Prostate CA and diabetes. SOCIAL HISTORY: He is single. No alcohol, tobacco. Active lifestyle. REVIEW OF SYSTEMS: Twelve system review is negative for fevers, sweats, chills. Ear, nose and throat negative. No chest pain, palpitations. No asthma, wheezing, shortness of breath. He has numbness and tingling and musculoskeletal pain medication. MEDICATIONS: Oxycodone, prednisone, Zantac and ibuprofen. PHYSICAL EXAMINATION: VITAL SIGNS: 6 feet, 195 pounds. He is in moderate distress. Blood pressure 130/80, pulse 80, respirations 16. HEENT: Pupils react to light and accommodation. Ear, nose and throat clear. CARDIAC: Normal S1, S2, no S3. LUNGS: Clear to auscultation. ABDOMEN: Soft and nontender. He has pain with flexion and extension, pain with percussion. He has pain with straight leg raising, positive Lasegue's sign and weakness of dorsiflexion. PLAN: Includes a discectomy L4-L5 lumbar spine.
[~2019-01-24 08:48] MED LIST changes: +CEFAZOLIN 2000MG 2,000 MG/15 ML SYR IV SCH; +DEXAMETHASONE SOD INJ 4 MG/ML VIAL ONE; +GLYCOPYRROLATE 0.2 MG/ML VIAL ONE; -HYDR-5688 PO; +HYDROmorphone INJ 2 MG/ML SYR/VIAL ONE; +LARYING-O-JET KIT (LTA) ONE; +LIDOCAINE HCL 2% 2 ML VIAL/AMP(20MG/ML) INFIL ONE; +LR 15ML/HR IV SCH; +MIDAZOLAM HCL 1 MG/ML 2ML VIAL ONE; +NEOSTIGMINE METHYLSULFATE 5 MG/5 ML SYR ONE; +ONDANSETRON INJ 2 MG/ML 2 ML VIAL ONE; +PROPOFOL IV EMULSION 10 MG/ML 20 ML VIAL IV ONE; -PRVHFAIN INH; +SODIUM CHLORIDE 0.9% 1,000 ML IV SCH; +SODIUM CHLORIDE 0.9% INJ 10 ML VIAL ONE; +fentaNYL citrate 100 MCG/2 ML VIAL ONE
[2019-01-24] MEDS ORDERED: DexMEDEtomidine HCL IV 100 MCG/ML VIAL ONE (09:01)
[2019-01-24] MEDS ORDERED: ONDANSETRON INJ 2 MG/ML 2 ML VIAL IV PRN ×2 (10:12→14:49)
[2019-01-24] MEDS ORDERED: ATROPINE SULFATE 0.1 MG/ML 10ML SYR IV PRN (10:12)
[2019-01-24] MEDS ORDERED: fentaNYL citrate 100 MCG/2 ML VIAL IV PRN (10:12)
[2019-01-24] MEDS ORDERED: ePHEDrine sulfate 50 MG/ML AMP IV PRN (10:12)
[2019-01-24] MEDS ORDERED: BACITRACIN INJ 50,000 UNIT VIAL ONE (11:10)
[2019-01-24] MEDS ORDERED: VANCOMYCIN HCL 1000MG/20ML VIAL ONE (11:10)
[2019-01-24] MEDS ORDERED: THROMBIN FOR SOLN 20000 UNIT KIT ONE (11:10)
[2019-01-24] MEDS ORDERED: GELATIN SPONGE SZ 100 ONE (11:10)
[2019-01-24] MEDS ORDERED: BUPIVACAINE 0.5 % 5 MG/1 ML MPF 30ML VIAL ONE (11:11)
[2019-01-24] MEDS ORDERED: EPINEPHrine INJ 1 MG/ML AMP ONE (11:11)
--- NOTE | 2019-01-24 11:25 | History & Physical Bridge Note ---
Date of Service January 24, 2019 History & Physical Bridge Note I have examined the patient, reviewed the History & Physical and in the interval since the performance of the History & Physical I have noted the following changes of clinical significance: no changes noted
[2019-01-24] MEDS ORDERED: ALBUTEROL HFA INHALER 8.5 GM ONE (11:56)
[2019-01-24] MEDS ORDERED: HYDROmorphone INJ 2 MG/ML SYR/VIAL ONE (12:49)
--- NOTE | 2019-01-24 13:36 | Post Operative Brief Note ---
PG Immediate Post Op with CF Date of Surgery January 24, 2019 Pre & Post Diagnosis Operation Date: 01/24/19 10:10 Pre-Op Diagnosis: LUMBAR INTERVERTEBRAL DISC DISPLACEMENT Post-Op Diagnosis: LUMBAR INTERVERTEBRAL DISC DISPLACEMENT I identified the patient and participated in the time-out.: Yes Procedure Operation Date: 01/24/19 10:10 Actual Procedures p L4-L5 Discectomy - Heath Matthew DO Surgeon Heath Matthew DO Field Support Representative bandar Estimated Blood Loss 100 Findings Consistent with Post-Op Diagnosis Specimens Specimen Description: None, as per surgeon Drains Hemovac Drain (10fr single) Overlapping Procedure I was immediately available: during the entire case.
--- NOTE | 2019-01-24 13:52 | Operative Report ---
PG Post Operative Report Pre & Post Diagnosis Operation Date: 01/24/19 10:10 Pre-Op Diagnosis: LUMBAR INTERVERTEBRAL DISC DISPLACEMENT Post-Op Diagnosis: LUMBAR INTERVERTEBRAL DISC DISPLACEMENT I identified the patient and participated in the time-out.: Yes Procedure Operation Date: 01/24/19 10:10 Actual Procedures p L4-L5 Discectomy - Heath Matthew DO Surgeon Heath Matthew DO Kier Pleater bandar Estimated Blood Loss 100 Findings Consistent with Post-Op Diagnosis Specimens No specimens Drains Hemovac Anesthesia Type General Description of Procedure Procedure: Patient was taken to the operating room and general intubated anesthetic provided patient placed prone on the Jef table. He was scrubbed and prepped draped sterile formal timeout provided Skin incision after marking this with a spinal needle in the 4 5 interval. Coagulated all bleeders keep a clean field. A midline laminotomy and laminectomy at L4-5. Upgoing laminotomy at L4 downgoing and L5 foraminotomies. Took off ligamentum flavum. Able to work my way out laterally to the facet joint reaffirmed our position with C arm guidance. The procedure was extremely difficult nerve was swollen in my estimation about 3 times normal size made it very difficult to get out laterally over the nerve root and retract the dura in a medial direction. We did finally accomplish this aspect of the procedure. At this point time we try to enter the disc interspace using 15 scalpel blade. The disc was hard over by an osteophyte made the entry to the disc" extremely difficult. Brought in x- ray to once again verify my position and we were right over the L4-5 interspace. I use a small pituitary and micropituitary all straight then she was able to get into the disc interval. Discectomy was then provided. Completed and accentuated the foraminotomy. Looked underneath the dura and nerve root for any free fragments disks and there was none to be found. At the conclusion I was pleased with a decompression and we did not destabilize the patient We began our closure nurse were irrigated with approximately 500 cc of fluid O's over a Hemovac drain and vancomycin powder 1 Vicryl suture 2 oh in a subcuticular layer and 3-0 nylon on the skin surface. Sterile dressings were applied patient returned supine. Procedure I did straight cath the patient in the operating room and we were able to retrieve 180 cc of urine. The patient was then brought safely to recovery room There was no apparent intraoperative complications Sponge and needle count correct at the close of procedure No implants used no fusion I attest to the content of the Intraoperative Record and any orders documented therein. Any exceptions are noted below.
--- NOTE | 2019-01-24 14:23 | Anesthesiology Progress Note ---
Date of Service January 24, 2019 Anesthesia Post Procedure Vital Signs Vital Signs: Temp Pulse Pulse Resp BP Pulse Ox 01/24/19 14:15 87 13 134/77 95 01/24/19 14:05 91 H 16 122/84 97 01/24/19 13:55 91 H 13 125/76 98 01/24/19 13:47 98.1 F 82 12 90/49 L 98 01/24/19 09:14 98.1 F 86 18 152/80 H Pain Intensity Medial Back: Pain Intensity: 1 Transfer of Care Handoff Completed per policy Notes Mental Status: alert / awake / arousable and participated in evaluation Patient Amnestic to Procedure: Yes Nausea / Vomiting: adequately controlled Pain: adequately controlled Airway Patency, RR, SpO2: stable & adequate BP & HR: stable & adequate Hydration State: stable & adequate Anesthetic Complications: no major complications apparent and Pt Satisfied with anesthetic care
[2019-01-24] MEDS ORDERED: ACETAMINOPHEN 1,000 MG/100 ML VIAL IV PRN (14:49)
[2019-01-24] MEDS ORDERED: MAGNESIUM HYDROXIDE SUSP 30 ML UDC PO PRN (14:49)
--- NOTE | 2019-01-24 14:49 | Fluoroscopy Report ---
FL spine 1V any level HISTORY: Preoperative evaluation. FLUOROSCOPY TIME: 11 seconds. FINDINGS: Intraoperative fluoroscopy was provided for the lumbar spine. 5 fluoroscopic spot images we re obtained. IMPRESSION: Fluoroscopy provided for a lumbar laminectomy and fusion. A surgical instrument is identi fied posterior to the L4-L5 level.. The above report was generated using voice recognition software. It may contain grammatical, syntax or spelling errors. Electronically signed by: Angel Urbina M.D. 01/24/2019 2:47 PM
[2019-01-24] MEDS: LACTATED RINGER'S 1,000 ML IV SCH (17:31)
[2019-01-24] MEDS: KETOROLAC 30 MG/ML VIAL IV PRN ×2 (17:31→23:22)
[2019-01-24] MEDS: DOCUSATE SODIUM 100 MG CAP PO SCH (20:12)
[2019-01-24] MEDS: CEFAZOLIN 2000MG 2,000 MG/15 ML SYR IV SCH (20:12)
[2019-01-24] MEDS: OXYCODONE HCL IR 5 MG TAB (IMMEDIATE RELEASE) PO PRN (22:12)
[2019-01-25] MEDS: HYDROmorphone INJ 1 MG/ML SYRINGE IV PRN ×3 (00:12→12:48)
[2019-01-25] MEDS: OXYCODONE HCL IR 5 MG TAB (IMMEDIATE RELEASE) PO PRN ×2 (03:14→11:22)
[2019-01-25] MEDS: CEFAZOLIN 2000MG 2,000 MG/15 ML SYR IV SCH ×2 (03:15→11:17)
[2019-01-25] MEDS: LACTATED RINGER'S 1,000 ML IV SCH (04:20)
--- NOTE | 2019-01-25 08:00 | Anesthesiology Progress Note ---
Date of Service January 25, 2019 Anesthesia Post Procedure Vital Signs Vital Signs: Temp Pulse Pulse Resp BP Pulse Ox 01/25/19 07:00 36.3 C L 70 16 107/63 95 01/25/19 04:00 36.7 C 82 18 147/80 H 98 01/25/19 00:59 85 155/82 H 01/25/19 00:00 36.8 C 98 H 16 185/85 H 97 01/24/19 20:43 36.9 C 89 18 146/82 H 96 01/24/19 17:36 36.5 C 86 16 144/84 H 97 01/24/19 16:42 36.4 C L 80 18 149/81 H 95 01/24/19 15:40 36.8 C 80 18 136/81 97 01/24/19 15:14 36.4 C L 86 18 132/87 95 01/24/19 14:40 36.8 C 86 16 133/86 100 01/24/19 14:35 86 11 L 123/74 95 01/24/19 14:25 36.6 C 73 11 L 114/71 96 01/24/19 14:15 87 13 134/77 95 01/24/19 14:05 91 H 16 122/84 97 01/24/19 13:55 91 H 13 125/76 98 01/24/19 13:47 36.7 C 82 12 90/49 L 98 01/24/19 09:14 36.7 C 86 18 152/80 H Pain Intensity Medial Back: Pain Intensity: 8 Notes Mental Status: alert / awake / arousable and participated in evaluation Patient Amnestic to Procedure: Yes Nausea / Vomiting: adequately controlled Pain: adequately controlled Airway Patency, RR, SpO2: stable & adequate BP & HR: stable & adequate Hydration State: stable & adequate Anesthetic Complications: no major complications apparent and Pt Satisfied with anesthetic care
[2019-01-25] MEDS: DOCUSATE SODIUM 100 MG CAP PO SCH (08:42)
--- NOTE | 2019-01-25 12:18 | Discharge Summary ---
Alec had an uneventful stay post-diskectomy lumbar spine. He was seen on rounds in the morning. He is alert, oriented, minimal complaints of pain. Ambulatory. No shortness of breath or chest pain. OBJECTIVE: VITAL SIGNS: Stable. ASSESSMENT: Status post discectomy uneventful hospital course with no issues. DISPOSITION: He will be discharged home later today with instruction precautions. Medications sent to his pharmacy. Back brace provided.
[2019-01-25 15:09] VITALS: BP 103/69; PULSE 88; TEMP 98.8; O2SAT 96
== END 2019-01-25 16:05 | disposition home or self-care (01) ==
LOC: ASU 08:48 → 3E 08:48
DX: Z79.899 Other long term (current) drug therapy; M51.26 Other intervertebral disc displacement, lumbar region; Z88.1 Allergy status to other antibiotic agents; Z87.891 Personal history of nicotine dependence

== ENCOUNTER 2019-10-24 05:19 | Observation (INO) ==
[2019-10-24] MEDS ORDERED: ONDANSETRON INJ 2 MG/ML 2 ML VIAL IV STA (05:38)
[2019-10-24] MEDS ORDERED: MoRPHine SULFATE 4 MG/ML 1 ML CARP\\VIAL IV STA (05:38)
[2019-10-24] MEDS ORDERED: KETOROLAC 30 MG/ML VIAL IV ONE (05:38)
[2019-10-24] MEDS ORDERED: SODIUM CHLORIDE 0.9% 1000ML 1,000 ML IV ONE (05:38)
[2019-10-24 05:49] LABS: Basophils # (auto) 0.04 K/uL (0-0.2); Basophils % (auto) 0.4 %; Eosinophils # (auto) 0.15 K/uL (0-0.5); Eosinophils % (auto) 1.6 %; Hematocrit (blood only) 43.1 % (42-52); Hemoglobin 14.8 g/dL (14.0-18.0); Immature Granulocytes # (auto) 0.01 K/uL (0.00-0.02); Immature Granulocytes % (auto) 0.1 %; Lymphocytes # (auto) 2.65 K/uL (1.2-3.4); Lymphocytes % (auto) 28.1 %; Mean Corpuscular Hemoglobin 30.5 pg (25-34); Mean Corpuscular Hgb Conc 34.3 g/dL (32-36); Mean Corpuscular Volume 88.7 fL (80-100); Mean Platelet Volume 9.5 fL (7.4-10.4); Monocytes # (auto) 0.83 K/uL (0.11-0.59); Monocytes % (auto) 8.8 %; Neutrophils # (auto) 5.75 K/uL (1.4-6.5); Platelet Count 278 K/uL (130-400); RDW Standard Deviation 41.7 fL (36.4-46.3); Red Blood Count 4.86 M/uL (4.7-6.1); White Blood Count 9.43 K/uL (4.8-10.8)
--- NOTE | 2019-10-24 06:00 | Emergency Department Note ---
Impression & Plan Hydronephrosis with ureteral calculus, Acute UTI ED Provider Note NAME: CHAKA DUMONT AGE: 34 SEX: M ARRIVES VIA: Walk-In INFORMANT: Patient ED PROVIDER(S): Delma Still DO CHIEF COMPLAINT: Left flank pain PLAN: Disposition: Admitted to the [facility] service Condition: Fair MEDICAL DECISION MAKING: This is a 34-year-old male patient who presents to the emergency department with left flank pain that started 45 minutes ago. The patient was seen here in the emergency department 2 nights ago and was thought to have a urinary tract infection. He was treated with IV antibiotics and started on Cipro. Laboratory studies show a creatinine at 1.3 which is a slight improvement from what it was 2 days ago. He went for CT scan of the abdomen/pelvis to rule out a stone. This revealed a left-sided 5 mm ureteral stone with hydronephrosis. In light of the patient's urinary tract infection in conjunction with this ureteral stone with hydronephrosis, I am concerned about an infected stone. The patient had been on outpatient Cipro. I will add IV Rocephin. [facility]. Triage Nursing notes reviewed and agree them. Prior medical records reviewed Vital Signs: reviewed and remarkable for no significant abnormalities Differential diagnosis: Obstructive uropathy, pyelonephritis, small bowel obstruction, ER treatment provided: IV normal saline solution IV Zofran IV Toradol IV morphine IV Rocephin Laboratory studies: See below Imaging studies: As per stat rad CT abdomen/pelvis: Nephrolithiasis with a 5 mm stone in the distal left ureter near the UVJ and mild to moderate left hydronephrosis. Mild left perinephr ic/periureteral stranding and slightly thickened under distended bladder. Fluid and air in the small bowel, query ileus or enteritis. Moderate stool in colon. Normal caliber appendix. Left greater than right adrenal thickening. Small fat-containing inguinal hernias. Mild basilar atelectatic changes HPI: 34/M arrives for evaluation of left flank pain. Patient awoke from sleep with severe left flank pain approximately 45 minutes ago. The patient was seen here 2 nights ago and diagnosed with a urinary tract infection. He was treated with 1 dose of IV antibiotics and started on Cipro. The patient does have a history of previous kidney stones but did not think originally this was a stone. ROS: See above HPI for pertinent positives & negatives. A total of 10 systems reviewed and were otherwise negative. PAST MEDICAL HISTORY:See Below PAST SURGICAL HISTORY:See Below FAMILY HISTORY:See Below SOCIAL HISTORY:See Below HOME MEDICATIONS:See list ALLERGIES:See list VITALS:See Below PHYSICAL EXAMINATION: HEENT: Head - normocephalic and atraumatic Pupils are equal, round, and reactive to light. Extraocular eye muscles are intact, and sclera are anicteric. Nose - moist nasal mucosa without discharge. Mouth - moist buccal mucosa. Oropharynx is nonerythematous and there is no tonsillar exudate or edema noted. Neck: Supple; no JVD, nuchal rigidity, cervical lymphadenopathy, or auscultated bruits. Heart: Regular rate and rhythm. There is a normal S1 and S2 with no murmurs, clicks, or gallops appreciated. Lungs: Clear to auscultation bilaterally with no wheezes, rales, or rhonchi. Abdomen: Soft, completely nontender, nondistended, with good bowel sounds. T here are no palpable pulsatile masses or hepatosplenomegaly. There is no guarding, rigidity, or rebound noted. Extremities: No evidence of cyanosis, clubbing, or edema. There are easily palpable peripheral pulses. Skin: warm and dry with good turgor and no rashes. ED COURSE: Times/Reassessments: 0530: Patient was evaluated in room C9. A complete history and physical was performed. An IV lock was initiated and labs were drawn as above. Previous electronic medical records were reviewed. The patient was medicated with IV Toradol, IV morphine, IV Zofran and IV normal saline solution. He went for CT scan of the abdomen/pelvis to rule out a kidney stone. 0610: The patient was reevaluated upon return from CAT scan and is much more comfortable. 0635:CT revealed a left-sided 5 mm ureteral stone with some obstructive changes. Patient was treated with 2 g of IV Rocephin. I discussed the case with the [facility] hospitalist as they will evaluate for further inpatient care. 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 SMOKE "EVERY ONCE IN A WHILE"; Second Hand Exposure: No; Hx Alcohol Use: No Hx Substance Use: Yes Last Used Substance Other:: CRYSTAL METH (LAST USED NOVEMBER 2018) MARIJAUNA LAST USED 3 DAYS AGO Substance Use Type Other:: CRYSTAL METH AND MARIJUANA Preferred Language: Pakistani Communication Ability: Effective Strategic Partnership Representative Required: No Beliefs That Will Affect Care: None marital status: Single Current Living Situation: Alone current occupational status: employed Feels Safe at Home: Yes Allergies Allergies Allergy/AdvReac Type Severity Reaction Status Date / Time erythromycin base Allergy Mild Rash Verified 10/24/19 05:39 Home Meds Previous Rx's Medication Instructions Recorded ciprofloxacin HCl [Cipro] 500 mg PO Q12H #14 tab 10/23/19 Results & Data (ED) Vital Signs Vital Signs - 24 hr 10/24/19 05:23 10/24/19 06:05 Temperature 36.8 C Temperature Source Oral Pulse Rate 103 H Respiratory Rate 18 Respiratory Depth Normal Blood Pressure 165/87 H Blood Pressure Mean 113 Pulse Oximetry 96 96 Oxygen Delivery Method Room Air Room Air Sepsis Recent Fever Within 48 Hours No Sepsis New/Unexplained Change in Mental Status N/A Sepsis Action Taken by Nursing No Action Required Laboratory Data Result diagrams: 10/24/19 05:40 10/24/19 05:40 Lab Results 10/24/19 10/24/19 10/24/19 Range/Units 05:40 05:40 05:49 WBC 9.43 (4.8-10.8) K/uL RBC 4.86 (4.7-6.1) M/uL Hgb 14.8 (14.0-18.0) g/dL POC Hgb 13.9 L (14.0-18.0) g/dl Hct 43.1 (42-52) % POC Hct 41 L (42-52) % MCV 88.7 (80-100) fL MCH 30.5 (25-34) pg MCHC 34.3 (32-36) g/dL RDW Std Deviation 41.7 (36.4-46.3) fL RDW Coeff of Christina 13.0 (11.5-14.5) % Plt Count 278 (130-400) K/uL MPV 9.5 (7.4-10.4) fL Immature Gran % (Auto) 0.1 % Neut % (Auto) 61.0 % Lymph % (Auto) 28.1 % Moore % (Auto) 8.8 % Eos % (Auto) 1.6 % Baso % (Auto) 0.4 % Neut # (Auto) 5.75 (1.4-6.5) K/uL Lymph # (Auto) 2.65 (1.2-3.4) K/uL Moore # (Auto) 0.83 H (0.11-0.59) K/uL Eos # (Auto) 0.15 (0-0.5) K/uL Baso # (Auto) 0.04 (0-0.2) K/uL Immature Gran # (Auto) 0.01 (0.00-0.02) K/uL POC Sodium 139 (135-144) mmol/L Sodium 139 (136-145) mmol/L POC Potassium 3.8 (3.3-5.0) mmol/L Potassium 3.7 (3.5-5.1) mmol/L POC Chloride 101 (101-112) mmol/L Chloride 104 (98-107) mmol/L Carbon Dioxide 29 (21-32) mmol/L POC Total CO2 25 (24-31) mmol/L Anion Gap 6.0 (3-11) POC Anion Gap 17.0 (16-25) mmol/L POC BUN 20 H (7-18) mg/dl BUN 18 (7-18) mg/dl Creatinine 1.44 H (0.6-1.4) mg/dl POC Creatinine 1.3 (0.6-1.3) mg/dl Est Cr Clr Drug Dosing 91.0 ml/min Est GFR ( Amer) 72.9 Est GFR (Non-Af Amer) 62.9 BUN/Creatinine Ratio 12.8 (10-20) Glucose 126 H (70-99) mg/dl POC Glucose (other) 144 H (70-99) mg/dl Calcium 9.3 (8.5-10.1) mg/dl POC Ioniz Calcium Edis 1.19 (1.12-1.32) mmol/l Total Bilirubin 0.4 (0.2-1) mg/dl AST 25 (15-37) U/L ALT 32 (12-78) U/L Alkaline Phosphatase 97 (45-117) U/L Total Protein 7.6 (6.4-8.2) gm/dl Albumin 4.2 (3.4-5.0) gm/dl Globulin 3.4 (2.5-4.0) gm/dl Albumin/Globulin Ratio 1.3 (0.9-2) Lipase 275 (73-393) U/L Administered Medications Sodium Chloride (Nss 1000ml) 1,000 mls @ 999 mls/hr IV .Q1H1M ONE Stop: 10/24/19 06:38 Last Admin: 10/24/19 05:54 Dose: 999 mls/hr Documented by: [id number] Discontinued Medications Ketorolac Tromethamine (Ketorolac 30 Mg/Ml Vial) 30 mg IV NOW ONE Stop: 10/24/19 05:39 Last Admin: 10/24/19 05:54 Dose: 30 mg Documented by: [id number] Morphine Sulfate (Morphine Sulfate 4 Mg/Ml 1 Ml Carp\\Vial) 4 mg IV NOW STA Stop: 10/24/19 05:39 Last Admin: 10/24/19 05:54 Dose: 4 mg Documented by: [id number] Ondansetron HCl (Ondansetron Inj 2 Mg/Ml 2 Ml Vial) 4 mg IV NOW STA Stop: 10/24/19 05:39 Last Admin: 10/24/19 05:54 Dose: 4 mg Documented by: [id number] Discharge Plan Visit Data Chief Complaint: Flank Pain Stated Complaint: UTI ED Provider: Delma Still Discharge Problem: Hydronephrosis with ureteral calculus, Acute UTI Forms Stand Alone Forms: My [facility] Prescriptions Prescriptions: No Action ciprofloxacin HCl [Cipro] 500 mg tablet 500 mg PO Q12H Qty: 14 RF: 0
[2019-10-24 06:12] LABS: iSTAT Creatinine 1.3 mg/dl (0.6-1.3); iSTAT Hemoglobin 13.9 g/dl (14.0-18.0); iSTAT Ionized Calcium 1.19 mmol/l (1.12-1.32); iSTAT Potassium 3.8 mmol/L (3.3-5.0)
[2019-10-24 06:18] LABS: Albumin Level 4.2 gm/dl (3.4-5.0); BUN Creatinine Ratio 12.8 (10-20); Calcium 9.3 mg/dl (8.5-10.1); Est GFR (African American) 72.9; Est GFR (Non-African American) 62.9; Potassium 3.7 mmol/L (3.5-5.1)
[2019-10-24 06:21] LABS: Albumin Globulin Ratio 1.3 (0.9-2); Bilirubin,Total 0.4 mg/dl (0.2-1); Globulin 3.4 gm/dl (2.5-4.0); Total Protein 7.6 gm/dl (6.4-8.2)
[2019-10-24] MEDS ORDERED: TAMSULOSIN HCL 0.4 MG CAP PO ONE (06:28)
[2019-10-24] MEDS ORDERED: cefTRIAXone SODIUM 2,000 MG/70 ML BAG IV STA (06:30)
[2019-10-24] MEDS ORDERED: TAMSULOSIN HCL 0.4 MG CAP ONE (06:33)
--- NOTE | 2019-10-24 06:51 | XRay Report ---
XR chest 1V portable CLINICAL HISTORY: Renal failure. COMPARISON STUDY: Chest radiograph October 28, 2016. FINDINGS: Lung volumes are normal. Lungs are clear. There is no pneumothorax or pleural effusion. Car diac size is normal. Mediastinal contours are normal. There is no evidence for pulmonary edema. IMPRESSION: No acute cardiopulmonary findings. ACT 112: Negative or not required by law. Electronically signed by: Mynor Feldman M.D. 10/24/2019 6:50 AM
--- NOTE | 2019-10-24 06:56 | CT Scan Report ---
CT OF THE ABDOMEN AND PELVIS WITHOUT CONTRAST CLINICAL HISTORY: Left flank pain. Evaluate for stone. COMPARISON STUDY: CT of the abdomen and pelvis March 10, 2017. TECHNIQUE: Axial images of the abdomen and pelvis were obtained without IV contrast. Images were revi ewed in the axial, sagittal, and coronal planes. Automated exposure control was utilized for the nathaniel dy. A dose lowering technique was utilized adhering to the principles of ALARA. FINDINGS: A 6 mm x 5 mm distal left ureteral calculus results in mild to moderate left hydroureterone phrosis. Bilateral renal calculi are noted. There are no right ureteral calculi. Evaluation of the re mainder of the abdomen and pelvis is suboptimal as unenhanced examination. Unenhanced images of the l iver, spleen, adrenal glands and pancreas are unremarkable. There is no evidence for a bowel obstruct ion. Appendix is normal. No bowel wall thickening is identified on this unenhanced exam. There is col onic diverticulosis without evidence for acute diverticulitis. There are no suspicious osseous lesion s. There is no lymphadenopathy. There is no fluid collection. IMPRESSION: 1. 6 mm x 5 mm distal left ureteral calculus results in mild to moderate hydroureteronephrosis. 2. Bilateral nephrolithiasis. ACT 112: Negative or not required by law. Electronically signed by: Mynor Feldman M.D. 10/24/2019 6:54 AM
--- NOTE | 2019-10-24 07:04 | History & Physical Report ---
Date of Service October 24, 2019 Assessment & Plan (1) Asymptomatic hypertensive urgency: Secondary to renal colic from obstructive uropathy/complicated UTI History of recurrent urolithiasis. Patient not septic for now. ARF secondary to above mood disorder, stable without any maintenance medications Hyperglycemia rule out DM ongoing tobacco abuse drug abuse as per records. Medical telemetry Analgesia, clonidine as needed Baseline clinical tech creatinine response to IVF Follow urine CS from ER visit from 2 nights ago, IV Cipro for complicated UTI Flomax, strain urine Urology consult Re: Obstructive uropathy N.p.o. until patient seen by Urology Check hemoglobin A1c Nicotine patch PRN DVT prophylaxis. SCDs RE hematuria Full code Text document was generated using [employer] voice recognition software. It may contain grammatical or spelling errors. Kindly contact undersigned for clarification of any documentation item in question. History of Present Illness Chief Complaint: Left flank pain Primary Care Provider: Erick Ovalels MD History obtained from patient and records. Medical history significant for mood disorder, chronic back pain status post surgery, history urolithiasis status post spontaneous passage, ongoing tobacco abuse, drug abuse as per records. Last confinement January 2019 under Orthopedics spine service for elective back surgery. 2 nights ago, patient seen at the ER for suprapubic discomfort and hematuria. No fever, no chills. Patient discharged on Cipro course. Last night, patient noted left flank discomfort reminiscent of kidney stone pain. No chest pain, no S OB. Patient consulted ER for worsening symptoms. Received IV Ceftriaxone for UTI at the ER. 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 [employer] Allergies Allergy/AdvReac Type Severity Reaction Status Date / Time erythromycin base Allergy Mild Rash Verified 10/24/19 05:39 Home Medications Home Medications Medication Instructions Recorded Confirmed Type ciprofloxacin HCl [Cipro] 500 mg PO Q12H #14 tab 10/23/19 10/24/19 Rx Past Med/Surg History Medical History (Updated 10/24/19 @ 07:33 by Seun Clifford MD) Bipolar disorder History of depression Hx of bronchitis Hx of esophageal reflux IVDU (intravenous drug user) LAST USED DECEMBER 06, 2018 (CRYSTAL METH) Kidney stones Lower extremity numbness RT LE NUMBNESS D/T LUMBAR DISC BULGING PVC (premature ventricular contraction) HX Surgical History H/O hand surgery LEFT HAND RING FINGER TENDON RT HAND RING/PINKY FINGER TENDON/MUSCLE REPAIR History of herniorrhaphy INGUINAL WITH MESH [place] teeth removed Family History Grandmother (Maternal) Diabetes Other Cancer Heart disease Hypertension Kidney disease Lung disease Social History Smoking Status: Current some day smoker Tobacco Type: Cigarettes Cigarettes Per Day: WILL OCAS. SMOKE "EVERY ONCE IN A WHILE"; Second Hand Exposure: No; Hx Alcohol Use: No Hx Substance Use: Yes Last Used Substance Other:: CRYSTAL METH (LAST USED NOVEMBER 2018) MARIJAUNA LAST USED 3 DAYS AGO Substance Use Type Other:: CRYSTAL METH AND MARIJUANA Preferred Language: Chilean Communication Ability: Effective Bundle Cutter Required: No Beliefs That Will Affect Care: None marital status: Single Current Living Situation: Alone current occupational status: employed Feels Safe at Home: Yes Review of Systems Review of Systems: As per HPI, all 10 systems reviewed, all other ROS negative Physical Exam Physical Exam: GENERAL: Slightly uncomfortable, no respiratory distress SKIN: Normal color, warm HEENT: Alopecia, [place] palpebral conjunctivae, no ptosis, dry buccal mucosa NECK : Supple, no tenderness CHEST : CTA, no tenderness HEART : Tachycardic, no obvious murmurs ABDOMEN: Some distention, nontender BACK : Left flank tenderness EXTREMITIES : No LE swelling/tenderness, no other conspicuous deformities noted NEUROLOGIC : Coherent, no facial asymmetry, no other gross focality Results & Data Results & Data ([facility]) Vital Signs (Past 12 Hours) Vital Signs Temp Pulse Resp BP Pulse Ox 10/24/19 06:05 96 10/24/19 05:23 36.8 C 103 H 18 165/87 H 96 Laboratory Results Laboratory Results WBC 9.43 K/uL (4.8-10.8) 10/24/19 05:40 RBC 4.86 M/uL (4.7-6.1) 10/24/19 05:40 Hgb 14.8 g/dL (14.0-18.0) 10/24/19 05:40 POC Hgb 13.9 g/dl (14.0-18.0) L 10/24/19 05:49 Hct 43.1 % (42-52) 10/24/19 05:40 POC Hct 41 % (42-52) L 10/24/19 05:49 MCV 88.7 fL (80-100) 10/24/19 05:40 MCH 30.5 pg (25-34) 10/24/19 05:40 MCHC 34.3 g/dL (32-36) 10/24/19 05:40 RDW Std Deviation 41.7 fL (36.4-46.3) 10/24/19 05:40 RDW Coeff of Christina 13.0 % (11.5-14.5) 10/24/19 05:40 Plt Count 278 K/uL (130-400) 10/24/19 05:40 MPV 9.5 fL (7.4-10.4) 10/24/19 05:40 Immature Gran % (Auto) 0.1 % 10/24/19 05:40 Neut % (Auto) 61.0 % 10/24/19 05:40 Lymph % (Auto) 28.1 % 10/24/19 05:40 [place] % (Auto) 8.8 % 10/24/19 05:40 Eos % (Auto) 1.6 % 10/24/19 05:40 Baso % (Auto) 0.4 % 10/24/19 05:40 Neut # (Auto) 5.75 K/uL (1.4-6.5) 10/24/19 05:40 Lymph # (Auto) 2.65 K/uL (1.2-3.4) 10/24/19 05:40 [place] # (Auto) 0.83 K/uL (0.11-0.59) H 10/24/19 05:40 Eos # (Auto) 0.15 K/uL (0-0.5) 10/24/19 05:40 Baso # (Auto) 0.04 K/uL (0-0.2) 10/24/19 05:40 Immature Gran # (Auto) 0.01 K/uL (0.00-0.02) 10/24/19 05:40 POC Sodium 139 mmol/L (135-144) 10/24/19 05:49 Sodium 139 mmol/L (136-145) 10/24/19 05:40 POC Potassium 3.8 mmol/L (3.3-5.0) 10/24/19 05:49 Potassium 3.7 mmol/L (3.5-5.1) 10/24/19 05:40 POC Chloride 101 mmol/L (101-112) 10/24/19 05:49 Chloride 104 mmol/L (98-107) 10/24/19 05:40 Carbon Dioxide 29 mmol/L (21-32) 10/24/19 05:40 POC Total CO2 25 mmol/L (24-31) 10/24/19 05:49 Anion Gap 6.0 (3-11) 10/24/19 05:40 POC Anion Gap 17.0 mmol/L (16-25) 10/24/19 05:49 POC BUN 20 mg/dl (7-18) H 10/24/19 05:49 BUN 18 mg/dl (7-18) 10/24/19 05:40 Creatinine 1.44 mg/dl (0.6-1.4) H 10/24/19 05:40 POC Creatinine 1.3 mg/dl (0.6-1.3) 10/24/19 05:49 Est Cr Clr Drug Dosing 91.0 ml/min 10/24/19 05:40 Est GFR ( Amer) 72.9 10/24/19 05:40 Est GFR (Non-Af Amer) 62.9 10/24/19 05:40 BUN/Creatinine Ratio 12.8 (-20) 10/24/19 05:40 Glucose 126 mg/dl (70-99) H 10/24/19 05:40 POC Glucose (other) 144 mg/dl (70-99) H 10/24/19 05:49 Calcium 9.3 mg/dl (8.5-10.1) 10/24/19 05:40 POC Ioniz Calcium Edis 1.19 mmol/l (1.12-1.32) 10/24/19 05:49 Total Bilirubin 0.4 mg/dl (0.2-1) 10/24/19 05:40 AST 25 U/L (15-37) 10/24/19 05:40 ALT 32 U/L (12-78) 10/24/19 05:40 Alkaline Phosphatase 97 U/L (45-117) 10/24/19 05:40 Total Protein 7.6 gm/dl (6.4-8.2) 10/24/19 05:40 Albumin 4.2 gm/dl (3.4-5.0) 10/24/19 05:40 Globulin 3.4 gm/dl (2.5-4.0) 10/24/19 05:40 Albumin/Globulin Ratio 1.3 (0.9-2) 10/24/19 05:40 Lipase 275 U/L (73-393) 10/24/19 05:[address] abdomen pelvis initial read: Nephrolithiasis with 5 mm stone distal left ureter near the UVJ and mild to moderate left hydronephrosis. Mild left perinephric/ureteral stranding. Thickened underdistended bladder. Enteritis. Moderate stool in the colon. Small fat-containing inguinal hernia. Chest x-ray as per my interpretation : No cardiomegaly, no congestion
[2019-10-24] MEDS: NSS + 20MEQ KCL 20 MEQ/1,000 ML BAG IV SCH ×2 (07:29→19:29)
[2019-10-24 08:04] LABS: Estimated Average Glucose 123 mg/dl; Hemoglobin A1C 5.9 % (4.5-5.6)
[2019-10-24] MEDS ORDERED: POTASSIUM CHLORIDE 20 MEQ TABCR PO STA (08:07)
[2019-10-24] MEDS ORDERED: ACETAMINOPHEN 325 MG TAB PO PRN (08:07)
[2019-10-24] MEDS ORDERED: PROMETHAZINE HCL 12.5 MG in SODIUM CHLORIDE 0.9% 50 ML IV PRN (08:07)
[2019-10-24 08:33] LABS: Magnesium 2.2 mg/dl (1.8-2.4); Thyroid Stimulating Hormone 1.38 uIu/ml (0.300-4.500)
[2019-10-24] MEDS ORDERED: CONSULT PHARMACY SCH (09:00)
[2019-10-24 09:17] LABS: Amphetamines+Metham, Urine Neg (Neg); Barbiturates, Urine Neg (Neg); Benzodiazepine, Urine Neg (Neg); Cocaine, Urine Neg (Neg); MDMA (Ecstacy), Urine Neg (Neg); Methadone, Urine Neg (Neg); Opiate, Urine Pos (Neg); Phencyclidine, Urine Neg (Neg)
--- NOTE | 2019-10-24 09:17 | Urology Consultation ---
Date of Consultation October 24, 2019 Assessment & Plan (1) Hydronephrosis with ureteral calculus: Patient undergoing supportive care with hydration and close monitoring. He is not having currently any fevers he does have some occasional warm feelings but no major chills or other ill feelings. No severe nausea. Pain has been better controlled with medications. He is being monitored for the elevated blood pressure. He has been worked up by the medicine team. Patient is tolerating IV fluids. He in the past has previously passed 4 mm stones on both sides. He has a strong family history with sisters who also have it. Discussed concerns and issues. Discussed options and plans moving forward. For time being we will continue with supportive care and maximum expulsion therapy. Patient can eat at this point from urologic standpoint unless other work-ups are being done. Plan would be to make n.p.o. at midnight to reassess with possible intervention tomorrow if patient worsens, develop fevers, develops severe nausea or intractable pain, or other major issues that would lead to needing a stent or intervention on the stone. Otherwise we will plan for time for passage. Did discuss that this may take a few days to a few weeks but with hydration and time the patient would be likely able to pass the distal 6 mm stone on the left (2) Asymptomatic hypertensive urgency: History of Present Illness Attending Physician: Marbin Lopez MD History of Present Illness Patient came in with significant hypertension. New consultation for patient with stone, discomfort, obstruction, and ill feelings. Patient developed sudden onset of pain into flank going down and radiating into groin and back in waves comes and goes. Can be severe at times. Discussed and reviewed patient's family history for any history of stone disease. Also, discussed patient's medical surgery history especially related to any history of urinary issues or stone disease. Patient has sisters who also gets stone disease. He is also previously passed stones on both sides the largest he believes was approximately 4 mm. Patient was admitted and is undergoing observation. Allergies Allergy/AdvReac Type Severity Reaction Status Date / Time erythromycin base Allergy Mild Rash Verified 10/24/19 05:39 Home Medications Home Medications Medication Instructions Recorded Confirmed Type ciprofloxacin HCl [Cipro] 500 mg PO Q12H #14 tab 10/23/19 10/24/19 Rx Patient History Medical History Bipolar disorder History of depression Hx of bronchitis Hx of esophageal reflux IVDU (intravenous drug user) LAST USED DECEMBER 06, 2018 (CRYSTAL METH) Kidney stones Lower extremity numbness RT LE NUMBNESS D/T LUMBAR DISC BULGING PVC (premature ventricular contraction) HX Surgical History H/O hand surgery LEFT HAND RING FINGER TENDON RT HAND RING/PINKY FINGER TENDON/MUSCLE REPAIR History of herniorrhaphy INGUINAL WITH MESH [place] teeth removed Family History Grandmother (Maternal) Diabetes Other Cancer Heart disease Hypertension Kidney disease Lung disease Social History Smoking Status: Current some day smoker Tobacco Type: Cigarettes Cigarettes Per Day: WILL OCAS. SMOKE "EVERY ONCE IN A WHILE"; Second Hand Exposure: No; Hx Alcohol Use: No Hx Substance Use: Yes Last Used Substance Other:: CRYSTAL METH (LAST USED NOVEMBER 2018) MARIJAUNA LAST USED 3 DAYS AGO Substance Use Type Other:: CRYSTAL METH AND MARIJUANA Preferred Language: Occitan Communication Ability: Effective Bedspread Cutter Hand Required: No Beliefs That Will Affect Care: None marital status: Single Current Living Situation: Alone current occupational status: employed Feels Safe at Home: Yes Review of Systems Review of Systems: All systems reviewed & are unremarkable except as noted in HPI & below Physical Exam Physical Exam: General: Alert and oriented x 3 in no acute distress. Patient is well nourished and well kept. HEENT: Normocephalic Atraumatic. Inspection normal. Cranial Nerves 2-12 Grossly intact. Nares are clear. Neck is supple. Normal inspection of face. Normal inspection of neck. Neurologic: No deficits on inspection. Baseline for motor function and sensory. Psychologic: Normal affect. Respiratory: Nonlabored. No use of accessory muscles. No tachypnea or dyspnea. Cardiovascular: No tachycardia Skin: [place] and Dry. No rashes or visible lesions. Extremities: Moving without issues. No motor deficits on inspection Lymphatics: No edema Abdomen: Soft Non-distended. No acites. No rebound or guarding. Results & Data ([facility]) Vital Signs (Past 12 Hours) Vital Signs Temp Pulse Pulse Resp BP BP Pulse Ox 10/24/19 07:08 84 16 163/101 H 96 10/24/19 06:05 96 10/24/19 05:23 36.8 C 103 H 18 165/87 H 96 PG Care Time/CCT Total # of Minutes Spent Total Time Spent with Patient: Total time spent is greater than 50% in coordination of care (as documented) at patient's floor/unit and/or counseling patient: Coding Level of Care Code 18782 Inpt Consult Level 5 Diagnoses Hydronephrosis with ureteral calculus N13.2 Asymptomatic hypertensive urgency I16.0
[2019-10-24 12:06] LABS: Appearance Urine Clear (Clear); Bacteria Urine Automated Negative (Negative); Bilirubin Urine Negative (Negative); Blood Urine 3+ (Negative); Color Urine Yellow; Epithelial Cell Urine Auto 0-5 /lpf (0-5); Glucose Urine UA Negative (Negative); Ketones Urine Negative (Negative); Leukocyte Esterase Urine Negative (Negative); Nitrite Urine Negative (Negative); Protein Urine Negative (Negative); RBC Urine Automated >30 /hpf (0-4); Specific Gravity Urine 1.014 (1.000-1.030); Urobilinogen Urine Negative (Negative); pH Urine 5.5 (4.5-7.5)
--- NOTE | 2019-10-24 12:41 | Hospitalist Progress Note ---
Date of Service October 24, 2019 Assessment & Plan (1) Hydronephrosis with ureteral calculus: Obstructive uropathy in setting of recent urinary tract infection treated with ciprofloxacin. No sepsis on arrival. Antibiotics switched to ceftriaxone and urology contacted. Currently taking conservative approach and allowing stone to pass spontaneously. Continue supportive care as needed. Continue IV fluids, tamsulosin and straining all urine. (2) Acute UTI: Ceftriaxone as above. Urine culture pending. Pt also concerned for STDs, so urine screening for GC/Chlamydia and HIV test sent after consent obtained. (3) Tobacco use: uses dip, encouraged to quit. Contemplative phase. (4) DVT prophylaxis: SCDs/ambulation Full Code Dispo-to home when medically stable and stone is treated. Melissa Lou DO [facility] Hospitalist Admission and Anticipated Discharge Date Admission Date: October 24, 2019 Subjective 34-year-old man reports unprotected sex on Monday followed by feeling urinary tract infection symptoms on Monday when he went to the ER and received Cipro. He reports his Cipro made him feel completely better and he was very well on Monday however last night he began feeling left flank pain that worsened as well as a left bladder pressure. He experienced hematuria this morning and the left flank pain was so severe he came into the hospital. Work-up included imaging revealing a 6 x 5 mm left ureteral calculus with mild to moderate hydronephrosis and bilateral nephrolithiasis. He was admitted to the hospitalist team and urology was consulted. They are allowing him to eat and attempt to spontaneously void the stone but will pursue cystoscopy and stent placement in a.m. if that does not result. The patient denies any significant pain at this point but does feel slightly warm. He denies fevers and chills and states the current room was hot when he arrived. He is somewhat apathetic to food denying nausea and vomiting. We discussed the concern for STDs and opted for GC chlamydia check and an HIV check. Consents were signed and specimens were taken. He continues on ceftriaxone broad-spectrum as well as IV fluids and Flomax. Review of Systems Review of Systems: All systems reviewed & are unremarkable except as noted in Subjective Physical Exam Physical Exam: CONSTITUTIONAL: WNWD, vitals as above, generally well- appearing EYES: normal conjunctivae, no scleral icterus ENT: external ear and nose normal, MMM RESPIRATORY: clear to auscultation bilaterally, no crackles, rales or wheezes, normal respiratory effort CARDIOVASCULAR: regular rate and rhythm, S1 and 2 heard without murmurs, gallops or rubs, no JVD, no peripheral edema GASTROINTESTINAL: normal bowel sounds, soft, nontender, no hepatomegaly, no guarding MUSCULOSKELETAL: strength 5/5 throughout, head is normocephalic and atraumatic SKIN: warm and dry, tattoes NEUROLOGIC: No facial palsy, no dysarthria. CN 2-12 grossly intact, no sensory deficit, normal cognition, normal speech,no gross focal deficits. PSYCHIATRIC: alert cooperative and oriented to person, place and time. Results & Data Results & Data ([facility]) Vital Signs (Past 12 Hours) Vital Signs Temp Pulse Pulse Resp BP BP Pulse Ox 10/24/19 11:52 36.6 C 58 L 18 149/79 H 93 10/24/19 10:25 36.8 C 80 18 131/69 95 10/24/19 07:08 84 16 163/101 H 96 10/24/19 06:05 96 10/24/19 05:23 36.8 C 103 H 18 165/87 H 96 Laboratory Results Short CBC 10/24/19 Range/Units 05:40 WBC 9.43 (4.8-10.8) K/uL Hgb 14.8 (14.0-18.0) g/dL Hct 43.1 (42-52) % Plt Count 278 (130-400) K/uL BMP 10/24/19 05:40 Sodium 139 Potassium 3.7 Chloride 104 Carbon Dioxide 29 BUN 18 Creatinine 1.44 H Glucose 126 H Calcium 9.3 Liver Function 10/24/19 Range/Units 05:40 Total Bilirubin 0.4 (0.2-1) mg/dl AST 25 (15-37) U/L ALT 32 (12-78) U/L Alkaline Phosphatase 97 (45-117) U/L Albumin 4.2 (3.4-5.0) gm/dl Urine 10/24/19 Range/Units 08:55 Urine Color Yellow Urine Appearance Clear (Clear) Urine pH 5.5 (4.5-7.5) Ur Specific [place] 1.014 (1.000-1.030) Urine Protein Negative (Negative) Urine Glucose (UA) Negative (Negative) Diagnostic Findings XR chest 1V portable CLINICAL HISTORY: Renal failure. COMPARISON STUDY: Chest radiograph October 28, 2016. FINDINGS: Lung volumes are normal. Lungs are clear. There is no pneumothorax or pleural effusion. Cardiac size is normal. Mediastinal contours are normal. There is no evidence for pulmonary edema. IMPRESSION: No acute cardiopulmonary findings. CT OF THE ABDOMEN AND PELVIS WITHOUT CONTRAST CLINICAL HISTORY: Left flank pain. Evaluate for stone. COMPARISON STUDY: CT of the abdomen and pelvis March 10, 2017. TECHNIQUE: Axial images of the abdomen and pelvis were obtained without IV contrast. Images were reviewed in the axial, sagittal, and coronal planes. Automated exposure control was utilized for the study. A dose lowering technique was utilized adhering to the principles of ALARA. FINDINGS: A 6 mm x 5 mm distal left ureteral calculus results in mild to moderate left hydroureteronephrosis. Bilateral renal calculi are noted. There are no right ureteral calculi. Evaluation of the remainder of the abdomen and pelvis is suboptimal as unenhanced examination. Unenhanced images of the liver, spleen, adrenal glands and pancreas are unremarkable. There is no evidence for a bowel obstruction. Appendix is normal. No bowel wall thickening is identified on this unenhanced exam. There is colonic diverticulosis without evidence for acute diverticulitis. There are no suspicious osseous lesions. There is no lymphadenopathy. There is no fluid collection. IMPRESSION: 1. 6 mm x 5 mm distal left ureteral calculus results in mild to moderate hydroureteronephrosis. 2. Bilateral nephrolithiasis. Medications Administered Current Inpatient Medications Acetaminophen (Acetaminophen 325 Mg Tab) 650 mg PO Q4H PRN PRN Reason: Pain or Fever Stop: 11/23/19 08:06 Hydromorphone HCl (Hydromorphone Inj 0.5 Mg/0.5 Ml Syr) 0.5 mg IV Q3H PRN PRN Reason: Pain Stop: 11/07/19 08:06 Potassium Chloride/Sodium Chloride (Normal Saline W/20 Meq Kcl) 20 meq in 1,000 mls @ 80 mls/hr IV .[id number] FELIPE Stop: 11/23/19 07:14 Last Admin: 10/24/19 07:29 Dose: 80 mls/hr Documented by: Promethazine HCl 12.5 mg/ (Sodium Chloride) 50.5 mls @ 202 mls/hr IV Q6H PRN PRN Reason: Nausea And Vomiting Stop: 11/23/19 08:06 Lorazepam (Ativan) 0.25 mg in 0.5 mls @ 0.5 mls/min IV Q4H PRN PRN Reason: Anxiety Stop: 11/23/19 08:06 Ceftriaxone Sodium 2,000 mg/ (Dextrose) 70 mls @ 140 mls/hr IV DAILY@0900 [facility]; Protocol Stop: 11/03/19 08:59 Oxycodone HCl (Oxycodone Hcl Ir 5 Mg Tab (Immediate Release)) 5 - 10 mg PO QID PRN PRN Reason: Pain Stop: 11/07/19 08:06 Tamsulosin HCl (Tamsulosin Hcl 0.4 Mg Cap) 0.4 mg PO QAM [facility] Stop: 11/24/19 08:59
[2019-10-24] MEDS: HYDROmorphone INJ 0.5 MG/0.5 ML SYR IV PRN ×2 (14:21→22:07)
[2019-10-24] MEDS ORDERED: CALCIUM CARBONATE 500 MG CHEWABLE TAB PO PRN (17:17)
--- NOTE | 2019-10-24 19:00 | Electrocardiogram Report ---
Test Reason : Blood Pressure : / mmHG Vent. Rate : 071 BPM Atrial Rate : 071 BPM P-R Int : 150 ms QRS Dur : 078 ms QT Int : 378 ms P-R-T Axes : 068 073 061 degrees QTc Int : 410 ms Normal sinus rhythm with sinus arrhythmia Normal ECG When compared with ECG of 28-OCT-2016 19:31, Vent. rate has decreased BY 37 BPM Confirmed by Suleiman Rojas ([id number]) on 10/24/2019 6:59:38 PM Referred By: REFERRED SELF Confirmed By:Osiel Rojas
[2019-10-25] MEDS: LORazepam 0.25 MG/0.5 ML VIAL IV PRN (01:29)
[2019-10-25 07:33] LABS: Basophils # (auto) 0.04 K/uL (0-0.2); Basophils % (auto) 0.6 %; Eosinophils # (auto) 0.22 K/uL (0-0.5); Hematocrit (blood only) 43.3 % (42-52); Hemoglobin 14.3 g/dL (14.0-18.0); Immature Granulocytes # (auto) 0.01 K/uL (0.00-0.02); Immature Granulocytes % (auto) 0.1 %; Lymphocytes # (auto) 2.46 K/uL (1.2-3.4); Mean Corpuscular Hemoglobin 29.5 pg (25-34); Mean Corpuscular Volume 89.5 fL (80-100); Mean Platelet Volume 9.6 fL (7.4-10.4); Monocytes # (auto) 0.55 K/uL (0.11-0.59); Monocytes % (auto) 7.6 %; Neutrophils # (auto) 3.96 K/uL (1.4-6.5); Neutrophils % (auto) 54.7 %; Platelet Count 274 K/uL (130-400); RDW Standard Deviation 42.3 fL (36.4-46.3); Red Blood Count 4.84 M/uL (4.7-6.1); White Blood Count 7.24 K/uL (4.8-10.8)
[2019-10-25] MEDS: NSS + 20MEQ KCL 20 MEQ/1,000 ML BAG IV SCH ×2 (08:05→23:37)
[2019-10-25] MEDS: TAMSULOSIN HCL 0.4 MG CAP PO SCH (08:06)
[2019-10-25] MEDS: cefTRIAXone SODIUM 2,000 MG in DEXTROSE 5% 50 ML IV SCH (08:06)
[2019-10-25 08:08] LABS: BUN Creatinine Ratio 10.3 (10-20); Calcium 8.4 mg/dl (8.5-10.1); Est GFR (African American) 92.8; Potassium 4.2 mmol/L (3.5-5.1)
--- NOTE | 2019-10-25 10:28 | Urology Progress Note ---
Date of Service October 25, 2019 Assessment & Plan (1) Left ureteral stone: kub and discuss intervention if stone still present Present on Admission?: Yes Admission and Anticipated Discharge Date Admission Date: October 24, 2019 Subjective Pt having less pain but discomfort and wants to intervene . Getting KUB and will discuss consent . If he agrees possible ureteroscopy later today or in am Results & Data ([facility]) Vital Signs (Past 12 Hours) Vital Signs Temp Pulse Pulse Resp BP Pulse Ox 10/25/19 06:54 36.8 C 78 17 132/78 94 10/25/19 03:41 36.8 C 62 15 130/81 96 10/25/19 00:00 88 10/24/19 23:24 36.7 C 74 15 135/74 95 PG Care Time/CCT Total # of Minutes Spent Total Time Spent with Patient: Total time spent is greater than 50% in coordination of care (as documented) at patient's floor/unit and/or counseling patient: Coding Level of Care Code 44111 Subseq Hosp Care Lvl 2 Diagnoses Left ureteral stone N20.1
--- NOTE | 2019-10-25 10:47 | XRay Report ---
KUB CLINICAL HISTORY: Ureteral stone. FINDINGS: 2 AP supine abdominal radiographs are correlated with abdominal CT dated 10/24/2019. There i s a nonobstructed abdominal bowel gas pattern noting mild to moderate colonic fecal retention. An 8 m m calculus projects over the distal left ureter. An additional 3 mm calcification projects over the l ower pole the right kidney. The bony structures appear intact. IMPRESSION: 1. An 8 mm calculus projects over the distal left ureter. 2. An additional small nonobstructing calculus projects over the right kidney. Electronically signed by: Remy Casiano M.D. 10/25/2019 10:45 AM
[2019-10-25] MEDS ORDERED: ONDANSETRON INJ 2 MG/ML 2 ML VIAL ONE (12:22)
[2019-10-25] MEDS ORDERED: LIDOCAINE HCL 2% 2 ML VIAL/AMP(20MG/ML) INFIL ONE (12:22)
[2019-10-25] MEDS ORDERED: MIDAZOLAM HCL 1 MG/ML 2ML VIAL ONE ×2 (12:22→13:58)
[2019-10-25] MEDS ORDERED: fentaNYL citrate 100 MCG/2 ML VIAL ONE (12:22)
[2019-10-25] MEDS ORDERED: PROPOFOL IV EMULSION 10 MG/ML 20 ML VIAL IV ONE ×3 (12:22→14:21)
[2019-10-25] MEDS ORDERED: DEXAMETHASONE SOD INJ 4 MG/ML VIAL ONE (12:22)
--- NOTE | 2019-10-25 13:41 | History & Physical Bridge Note ---
Date of Service October 25, 2019 History & Physical Bridge Note I have examined the patient, reviewed the History & Physical and in the interval since the performance of the History & Physical I have noted the following changes of clinical significance: no changes noted Plan Cystoscopy and possible left stent.
--- NOTE | 2019-10-25 13:47 | Anesthesiology Consultation ---
Date of Service October 25, 2019 Assessment & Plan (1) Encounter for pre-operative examination: Chart Review Chart Review: Acceptable Risk for Surgery and Patient NOT seen in Pre Admission Testing Consults Requested none ASA ASA2 Proposed Anesthesia Anesthesia Type: MAC Risk / Benefits Reviewed With: PT / POA / Parent / Guardian, Accepts Plan and I nformed Consent Obtained History Surgery Operation Date: 10/25/19 16:20 Proposed Procedures p Left Ureteroscopy, Laser Lithotripsy, Stent Placement - Malcom Ogden, DO Height/Weight Height: 5 ft 11 in Weight: 109.5 kg Allergies Allergy/AdvReac Type Severity Reaction Status Date / Time erythromycin base Allergy Mild Rash Verified 10/24/19 05:39 Medications Home Medications Medication Instructions Recorded Confirmed Last Taken ciprofloxacin HCl [Cipro] 500 mg PO Q12H #14 tab 10/23/19 10/24/19 Unknown Active Medications Generic Name Dose Route Start Last Admin Trade Name Freq PRN Reason Stop Dose Admin Hydromorphone HCl 0.5 mg 10/24/19 08:07 10/24/19 22:07 Hydromorphone Inj 0.5 Mg/0.5 Ml Syr IV 11/07/19 08:06 0.5 mg Q3H PRN Administration Pain Potassium Chloride/Sodium Chloride 20 meq in 1,000 mls @ 80 mls/hr 10/24/19 07:15 10/25/19 08:05 Normal Saline W/20 Meq Kcl IV 11/23/19 07:14 80 mls/hr .[id number] FELIPE Administration Lorazepam 0.25 mg in 0.5 mls @ 0.5 mls/min 10/24/19 08:07 10/25/19 01:29 Ativan IV 11/23/19 08:06 0.5 mls/min Q4H PRN Administration Anxiety Ceftriaxone Sodium 2,000 mg/ 70 mls @ 140 mls/hr 10/25/19 09:00 10/25/19 08:42 Dextrose IV 11/03/19 08:59 Infused DAILY@0900 FELIPE Infusion Protocol Tamsulosin HCl 0.4 mg 10/25/19 09:00 10/25/19 08:06 Tamsulosin Hcl 0.4 Mg Cap PO 11/24/19 08:59 0.4 mg QAM FELIPE Administration NPO Date Last Intake of Fluids: 10/24/19 Time Last Intake of Fluids: 17:00 Date Last Intake of Solids: 10/24/19 Time Last Intake of Solids: 18:00 Past Medical History Medical History Bipolar disorder History of depression Hx of bronchitis Hx of esophageal reflux IVDU (intravenous drug user) LAST USED DECEMBER 06, 2018 (CRYSTAL METH) Kidney stones Lower extremity numbness RT LE NUMBNESS D/T LUMBAR DISC BULGING PVC (premature ventricular contraction) HX Exercise / Class Metabolic Activity II 4-5 Yardwork/Stairs/Walk up hill Negative for chest pain or shortness of breath. Past Family History Family History Grandmother (Maternal) Diabetes Other Cancer Heart disease Hypertension Kidney disease Lung disease Past Surgical History Surgical History H/O hand surgery LEFT HAND RING FINGER TENDON RT HAND RING/PINKY FINGER TENDON/MUSCLE REPAIR History of herniorrhaphy INGUINAL WITH MESH [place] teeth removed Past Anesthesia History No Hx of Anesthesia Complications History of PONV No Hx of PONV Social History Smoking Status: Former smoker tobacco type: cigarettes and smokeless tobacco Smoking cigarettes per day: WILL OCAS. SMOKE "EVERY ONCE IN A WHILE" Do You Dip or Chew Tobacco: Yes Hx Alcohol Use: No Alcohol type: beer alcohol intake frequency: a few times a month Hx Substance Use: Yes substance use type: marijuana Substance Use Type Other:: CRYSTAL METH AND MARIJUANA Last Used Substance: Just Prior to Arrival Last Used Substance Other:: CRYSTAL METH (LAST USED NOVEMBER 2018) MARIJAUNA LAST USED 3 DAYS AGO Physical Exam Vital Signs Last Vital Signs Temp 36.6 C 10/25/19 13:24 Pulse 75 10/25/19 13:24 Resp 20 10/25/19 13:24 BP 146/87 H 10/25/19 13:24 Pulse Ox 96 10/25/19 13:24 Constitutional not obese ENMT Mouth: no TMJ abnormality and oral opening not small Thyromental Distance: > or= 3.5 Finger Breadths Mallampati Class: I Neck normal visual inspection; neck extension not limited Respiratory normal respiratory effort Auscultation: lungs clear to auscultation bilaterally Cardiovascular Rate/Rhythm: regular rate and regular rhythm Heart Sounds: no murmur Neurologic moves all extremities Psychiatric Orientation: alert and oriented x 3 Testing Laboratory Results 10/25/19 07:07 10/25/19 07:07 Hemoglobin A1c 5.9 % (4.5-5.6) H 10/24/19 05:40 Urine Color Yellow 10/24/19 08:55 Urine Appearance Clear (Clear) 10/24/19 08:55 Urine pH 5.5 (4.5-7.5) 10/24/19 08:55 Ur Specific [place] 1.014 (1.000-1.030) 10/24/19 08:55 Urine Protein Negative (Negative) 10/24/19 08:55 Urine Glucose (UA) Negative (Negative) 10/24/19 08:55 Urine Ketones Negative (Negative) 10/24/19 08:55 Urine Nitrite Negative (Negative) 10/24/19 08:55 Ur Leukocyte Esterase Negative (Negative) 10/24/19 08:55 Urine WBC (Auto) 1-5 /hpf (0-5) 10/24/19 08:55 Urine RBC (Auto) >30 /hpf (0-4) H 10/24/19 08:55 U Hyaline Cast (Auto) 1-5 /lpf (0-5) 10/24/19 08:55 U Epithel Cells (Auto) 0-5 /lpf (0-5) 10/24/19 08:55 Urine Bacteria (Auto) Negative (Negative) 10/24/19 08:55
[2019-10-25] MEDS ORDERED: ONDANSETRON INJ 2 MG/ML 2 ML VIAL IV PRN (13:52)
[2019-10-25] MEDS ORDERED: ATROPINE SULFATE 0.1 MG/ML 10ML SYR IV PRN (13:52)
[2019-10-25] MEDS ORDERED: ePHEDrine sulfate 50 MG/ML AMP IV PRN (13:52)
[2019-10-25] MEDS ORDERED: fentaNYL citrate 100 MCG/2 ML VIAL IV PRN (13:52)
[2019-10-25] MEDS ORDERED: DIATRIZOATE MEGLUMINE 30% 100ML VIAL INSTIL ONE (14:24)
--- NOTE | 2019-10-25 14:28 | Operative Report ---
PG Post Operative Report Pre & Post Diagnosis Operation Date: 10/25/19 16:20 Pre-Op Diagnosis: Left ureteral stone Post-Op Diagnosis: Left ureteral stone I identified the patient and participated in the time-out.: Yes Procedure Operation Date: 10/25/19 16:20 Actual Procedures p Cystoscopy with Left Ureteroscopy, Laser Lithotripsy, Basket Stone Extraction, Dilation, Retrograde Pyelogram, Left Stent Placement(Left) - Malcom Ogden DO Surgeon Malcom Ogden, II, DO Field Marketing Manager None Estimated Blood Loss 1 Findings Consistent with Post-Op Diagnosis Stone destroyed to dust and small fragments and larger fragments removed. Specimens Stone Fragments Drains 6 Fr Multilength Anesthesia Type General Complications none Disposition Disposition: Recovery Room Indications Patient with bothersome stones. Risks and benefits discussed at length. Description of Procedure Patient was consented and brought back to the operating room. Patient was placed under anesthesia in the supine position and moved to the dorsal lithotomy position. Patient was prepped and draped in the regular sterile fashion. A time out was completed. A 30degree Cystoscope was placed into the bladder and the entire bladder was examined. The UO's were identified. The UO was cannulized with a catheter and a retrograde pyelogram was completed. A wire was then placed. The Rigid ureteroscope was taken into the ureter after dilating. The stone was identified. A laser fiber was selected and the stones were pulverized to dust and small fragments. Larger fragments were grasped and removed and sent for analysis. The entire area was once again examined. No residual large fragments or areas of concern were noted. The scope was slowly removed with the wire left in place. Contrast was placed through the scope for a pyelogram to assist in stent placement. The entire ureter was examined as the scope was slowly removed. No obstructions or other areas of concern were noted. With the wire in place, a 6 Fr Double J stent was placed. It was confirmed with fluoroscopy. With the stent in place, the bladder was emptied. The scope was removed. The patient was cleaned, aroused from anesthesia, and transferred to the pacu in stable condition having tolerated the procedure well with no complications. I was present and participated in all aspects of the procedure. The patient will be monitored in the PACU until transferred. I attest to the content of the Intraoperative Record and any orders documented therein. Any exceptions are noted below.
--- NOTE | 2019-10-25 14:36 | Fluoroscopy Report ---
FL retrograde includes kub CLINICAL HISTORY: LT STONE/STENT COMPARISON STUDY: CT of the abdomen and pelvis October 24, 2019. KUB October 25, 2019. FLUOROSCOPY TIME: 38 seconds. FLUOROSCOPIC IMAGES: 5 FINDINGS: Fluoroscopy was provided during left retrograde exam. There is left collecting system dilat ation. Left ureteral stent was placed. IMPRESSION: Fluoroscopy provided during left retrograde exam with ureteral stent insertion. ACT 112: Negative or not required by law. Electronically signed by: Mynor Feldman M.D. 10/25/2019 2:34 PM
--- NOTE | 2019-10-25 14:56 | Anesthesiology Progress Note ---
Date of Service October 25, 2019 Anesthesia Post Procedure Vital Signs Vital Signs: Temp Pulse Pulse Pulse Resp BP BP 10/25/19 14:45 55 L 14 147/106 H 10/25/19 14:36 36.5 C 67 16 160/104 H 10/25/19 13:24 36.6 C 75 20 146/87 H 10/25/19 11:50 36.7 C 78 16 133/76 10/25/19 06:54 36.8 C 78 17 132/78 10/25/19 03:41 36.8 C 62 15 130/81 10/25/19 00:00 88 10/24/19 23:24 36.7 C 74 15 135/74 10/24/19 19:34 36.4 C L 73 13 136/80 10/24/19 16:00 86 10/24/19 15:03 37 C 87 12 160/84 H Pulse Ox 10/25/19 14:45 100 10/25/19 14:36 100 10/25/19 13:24 96 10/25/19 11:50 94 10/25/19 06:54 94 10/25/19 03:41 96 10/25/19 00:00 10/24/19 23:24 95 10/24/19 19:34 96 10/24/19 16:00 10/24/19 15:03 95 Pain Intensity Left Flank: Pain Intensity: 0 Transfer of Care Handoff Completed per policy Notes Mental Status: alert / awake / arousable and participated in evaluation Nausea / Vomiting: adequately controlled Pain: adequately controlled Airway Patency, RR, SpO2: stable & adequate BP & HR: stable & adequate Hydration State: stable & adequate Anesthetic Complications: no major complications apparent and Pt Satisfied with anesthetic care
[2019-10-25] MEDS: HYDROmorphone INJ 0.5 MG/0.5 ML SYR IV PRN ×2 (15:36→19:09)
[2019-10-25] MEDS ORDERED: KETOROLAC 30 MG/ML VIAL IV PRN (16:18)
[2019-10-25] MEDS: OXYCODONE HCL IR 5 MG TAB (IMMEDIATE RELEASE) PO PRN ×2 (16:28→23:37)
[2019-10-25] MEDS ORDERED: MoRPHine SULFATE 4 MG/ML 1 ML CARP\\VIAL IV STA (20:02)
[2019-10-25] MEDS ORDERED: MoRPHine SULFATE 4 MG/ML 1 ML CARP\\VIAL IV PRN (20:05)
[2019-10-25] MEDS ORDERED: MoRPHine SULFATE 4 MG/ML 1 ML CARP\\VIAL ONE (20:05)
[2019-10-25] MEDS ORDERED: IBUPROFEN 800 MG TAB PO STA (20:33)
[2019-10-25] MEDS ORDERED: HYDROmorphone INJ 1 MG/ML SYRINGE IV STA (20:33)
[2019-10-25] MEDS: PHENAZOPYRIDINE HCL 200 MG TAB PO SCH (21:15)
--- NOTE | 2019-10-25 21:48 | Hospitalist Progress Note ---
Date of Service October 25, 2019 Assessment & Plan (1) Hydronephrosis with ureteral calculus: Obstructive uropathy in setting of recent urinary tract infection treated with ciprofloxacin. No sepsis on arrival. Antibiotics switched to ceftriaxone -although urine culture was negative will continue overnight perioperatively. Underwent ureteroscopy with destruction of stone and stent placement. Having post-op LLQ pain and some hematuria. Giving pyridium and some Dilaudid for acute pain + Ibuprofen to help the pain control last until he can go to sleep. (2) Acute UTI: Ceftriaxone as above. Urine culture negative. Pt also concerned for STDs, so urine screening for GC/Chlamydia and HIV returned negative. This was reported to patient. (3) Tobacco use: uses dip, encouraged to quit. Contemplative phase. (4) DVT prophylaxis: SCDs/ambulation Full Code Dispo-to home when medically stable and stone is treated. [facility] and Anticipated Discharge Date Admission Date: October 24, 2019 Subjective Not doing well post-op Reports hematuria with some blood clots and significant suprapubic/LLQ pain that is severe We discussed the procedure performed He is otherwise doing ok and was able to eat dinner. Denies any nausea with previous pain medications. I did inform him of his HIV negative status and he verbalized understanding. Review of Systems Review of Systems: All systems reviewed & are unremarkable except as noted in Subjective Physical Exam Physical Exam: CONSTITUTIONAL: WNWD, vitals as above, generally appears in moderate distress 2/2 pain EYES: normal conjunctivae, no scleral icterus ENT: external ear and nose normal, MMM RESPIRATORY: clear to auscultation bilaterally, no crackles, rales or wheezes, normal respiratory effort CARDIOVASCULAR: regular rate and rhythm, S1 and 2 heard without murmurs, gallops or rubs, no JVD, no peripheral edema GASTROINTESTINAL: normal bowel sounds, soft, TTP in LLQ/suprapubic area, nondistended MUSCULOSKELETAL: strength 5/5 throughout, head is normocephalic and atraumatic SKIN: warm and dry, tattooes NEUROLOGIC: No facial palsy, no dysarthria. CN 2-12 grossly intact, normal cognition, normal speech, no gross focal deficits. PSYCHIATRIC: alert cooperative and oriented to person, place and time. Results & Data Results & Data ([facility]) Vital Signs (Past 12 Hours) Vital Signs Temp Pulse Pulse Pulse Resp BP BP 10/25/19 19:50 36.6 C 70 20 149/87 H 10/25/19 17:00 36.8 C 70 16 150/90 H 10/25/19 16:38 36.5 C 84 16 139/90 10/25/19 15:57 36.4 C L 50 L 14 151/102 H 10/25/19 15:25 36.7 C 57 L 56 L 18 147/96 H 10/25/19 15:05 36.5 C 65 16 151/99 H 10/25/19 14:55 71 16 141/90 H 10/25/19 14:45 55 L 14 147/106 H 10/25/19 14:36 36.5 C 67 16 160/104 H 10/25/19 13:24 36.6 C 75 20 146/87 H 10/25/19 11:50 36.7 C 78 16 133/76 Pulse Ox 10/25/19 19:50 95 10/25/19 17:00 95 10/25/19 16:38 97 10/25/19 15:57 97 10/25/19 15:25 96 10/25/19 15:05 96 10/25/19 14:55 97 10/25/19 14:45 100 10/25/19 14:36 100 10/25/19 13:24 96 10/25/19 11:50 94 Laboratory Results Short CBC 10/25/19 Range/Units 07:07 WBC 7.24 (4.8-10.8) K/uL Hgb 14.3 (14.0-18.0) g/dL Hct 43.3 (42-52) % Plt Count 274 (130-400) K/uL BMP 10/25/19 07:07 Sodium 141 Potassium 4.2 Chloride 108 H Carbon Dioxide 27 BUN 12 Creatinine 1.18 Glucose 90 Calcium 8.4 L Medications Administered Current Inpatient Medications Acetaminophen (Acetaminophen 325 Mg Tab) 650 mg PO Q4H PRN PRN Reason: Pain or Fever Stop: 11/23/19 08:06 Calcium Carbonate (Calcium Carbonate 500 Mg Chewable Tab) 1,000 mg PO Q6H PRN PRN Reason: Indigestion Stop: 11/23/19 17:16 Potassium Chloride/Sodium Chloride (Normal Saline W/20 Meq Kcl) 20 meq in 1,000 mls @ 80 mls/hr IV .[id number] [facility] Stop: 11/23/19 07:14 Last Infusion: 10/25/19 16:28 Dose: 80 mls/hr Documented by: Promethazine HCl 12.5 mg/ (Sodium Chloride) 50.5 mls @ 202 mls/hr IV Q6H PRN PRN Reason: Nausea And Vomiting Stop: 11/23/19 08:06 Lorazepam (Ativan) 0.25 mg in 0.5 mls @ 0.5 mls/min IV Q4H PRN PRN Reason: Anxiety Stop: 11/23/19 08:06 Last Admin: 10/25/19 01:29 Dose: 0.5 mls/min Documented by: Ceftriaxone Sodium 2,000 mg/ (Dextrose) 70 mls @ 140 mls/hr IV DAILY@0900 [facility]; Protocol Stop: 11/03/19 08:59 Last Infusion: 10/25/19 08:42 Dose: Infused Documented by: Ketorolac Tromethamine (Ketorolac 30 Mg/Ml Vial) 30 mg IV Q6H PRN PRN Reason: Pain Stop: 10/30/19 16:17 Last Admin: 10/25/19 16:29 Dose: 30 mg Documented by: Morphine Sulfate (Morphine Sulfate 4 Mg/Ml 1 Ml Carp\Vial) 4 mg IV Q4H PRN PRN Reason: Pain Stop: 11/08/19 20:04 Oxycodone HCl (Oxycodone Hcl Ir 5 Mg Tab (Immediate Release)) 5 - 10 mg PO QID PRN PRN Reason: Pain Stop: 11/07/19 08:06 Last Admin: 10/25/19 16:28 Dose: 10 mg Documented by: Phenazopyridine HCl (Phenazopyridine Hcl 200 Mg Tab) 200 mg PO TID [facility] Stop: 11/24/19 20:59 Last Admin: 10/25/19 21:15 Dose: 200 mg Documented by: Tamsulosin HCl (Tamsulosin Hcl 0.4 Mg Cap) 0.4 mg PO QAM [facility] Stop: 11/24/19 08:59 Last Admin: 10/25/19 08:06 Dose: 0.4 mg Documented by:
[2019-10-26 07:32] LABS: Hematocrit (blood only) 42.1 % (42-52); Hemoglobin 14.1 g/dL (14.0-18.0); Mean Corpuscular Hemoglobin 29.9 pg (25-34); Mean Corpuscular Hgb Conc 33.5 g/dL (32-36); Mean Corpuscular Volume 89.4 fL (80-100); Mean Platelet Volume 9.6 fL (7.4-10.4); Platelet Count 271 K/uL (130-400); RDW Coefficient of Variation 12.7 % (11.5-14.5); RDW Standard Deviation 40.9 fL (36.4-46.3); Red Blood Count 4.71 M/uL (4.7-6.1); White Blood Count 9.18 K/uL (4.8-10.8)
[2019-10-26 08:09] LABS: BUN Creatinine Ratio 9.5 (10-20); Calcium 9.3 mg/dl (8.5-10.1); Creatinine Clr Calc Pharmacy 97.8 ml/min; Est GFR (African American) 79.5; Est GFR (Non-African American) 68.6; Potassium 4.5 mmol/L (3.5-5.1)
[2019-10-26] MEDS: OXYCODONE HCL IR 5 MG TAB (IMMEDIATE RELEASE) PO PRN (08:12)
[2019-10-26] MEDS: cefTRIAXone SODIUM 2,000 MG in DEXTROSE 5% 50 ML IV SCH (08:12)
[2019-10-26] MEDS: TAMSULOSIN HCL 0.4 MG CAP PO SCH (08:13)
[2019-10-26] MEDS: PHENAZOPYRIDINE HCL 200 MG TAB PO SCH ×2 (08:13→13:11)
[2019-10-26] MEDS: LORazepam 0.25 MG/0.5 ML VIAL IV PRN (08:17)
--- NOTE | 2019-10-26 08:19 | Anesthesiology Progress Note ---
Date of Service October 26, 2019 Anesthesia Post Procedure Vital Signs Vital Signs: Temp Pulse Pulse Pulse Resp BP BP 10/26/19 07:00 36.6 C 69 85 18 123/66 10/26/19 04:00 36.9 C 66 20 149/84 H 10/25/19 23:28 65 10/25/19 23:00 36.7 C 71 20 157/72 H 10/25/19 19:50 36.6 C 70 20 149/87 H 10/25/19 17:00 36.8 C 70 16 150/90 H 10/25/19 16:38 36.5 C 84 16 139/90 10/25/19 15:57 36.4 C L 50 L 14 151/102 H 10/25/19 15:25 36.7 C 57 L 56 L 18 147/96 H 10/25/19 15:05 36.5 C 65 16 151/99 H 10/25/19 14:55 71 16 141/90 H 10/25/19 14:45 55 L 14 147/106 H 10/25/19 14:36 36.5 C 67 16 160/104 H 10/25/19 13:24 36.6 C 75 20 146/87 H 10/25/19 11:50 36.7 C 78 16 133/76 Pulse Ox 10/26/19 07:00 97 10/26/19 04:00 94 10/25/19 23:28 10/25/19 23:00 95 10/25/19 19:50 95 10/25/19 17:00 95 10/25/19 16:38 97 10/25/19 15:57 97 10/25/19 15:25 96 10/25/19 15:05 96 10/25/19 14:55 97 10/25/19 14:45 100 10/25/19 14:36 100 10/25/19 13:24 96 10/25/19 11:50 94 Pain Intensity Left Flank: Pain Intensity: 4 (with urination) Penis: Pain Intensity: 0 Notes Mental Status: alert / awake / arousable and participated in evaluation Nausea / Vomiting: adequately controlled Pain: adequately controlled Airway Patency, RR, SpO2: stable & adequate BP & HR: stable & adequate Hydration State: stable & adequate Anesthetic Complications: no major complications apparent and Pt Satisfied with anesthetic care
[2019-10-26] MEDS: NSS + 20MEQ KCL 20 MEQ/1,000 ML BAG IV SCH (11:49)
--- NOTE | 2019-10-26 12:46 | Discharge Summary ---
Date of Service October 26, 2019 Admission HPI Per Admitting Provider History obtained from patient and records. Medical history significant for mood disorder, chronic back pain status post surgery, history urolithiasis status post spontaneous passage, ongoing tobacco abuse, drug abuse as per records. Last confinement January 2019 under Orthopedics spine service for elective back surgery. 2 nights ago, patient seen at the ER for suprapubic discomfort and hematuria. No fever, no chills. Patient discharged on Cipro course. Last night, patient noted left flank discomfort reminiscent of kidney stone pain. No chest pain, no S OB. Patient consulted ER for worsening symptoms. Received IV Ceftriaxone for UTI at the ER. 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 [employer] Admission Exam Per Admitting Provider GENERAL: Slightly uncomfortable, no respiratory distress SKIN: Normal color, warm HEENT: Alopecia, [place] palpebral conjunctivae, no ptosis, dry buccal mucosa NECK : Supple, no tenderness CHEST : CTA, no tenderness HEART : Tachycardic, no obvious murmurs ABDOMEN: Some distention, nontender BACK : Left flank tenderness EXTREMITIES : No LE swelling/tenderness, no other conspicuous deformities noted NEUROLOGIC : Coherent, no facial asymmetry, no other gross focality Principal Diagnosis Obstructive uropathy 2/2 Left ureteral stone s/p stent placement Discharge Exam CONSTITUTIONAL: WNWD, vitals as above, generally appears well EYES: normal conjunctivae, no scleral icterus ENT: external ear and nose normal, MMM RESPIRATORY: clear to auscultation bilaterally, no crackles, rales or wheezes, normal respiratory effort CARDIOVASCULAR: regular rate and rhythm, S1 and 2 heard without murmurs, gallops or rubs, no JVD, no peripheral edema GASTROINTESTINAL: normal bowel sounds, soft, nontender, nondistended MUSCULOSKELETAL: strength 5/5 throughout, head is normocephalic and atraumatic SKIN: warm and dry, tattooes NEUROLOGIC: No facial palsy, no dysarthria. CN 2-12 grossly intact, normal cognition, normal speech, no gross focal deficits. PSYCHIATRIC: alert cooperative and oriented to person, place and time. Discharge Data Allergies Allergy/AdvReac Type Severity Reaction Status Date / Time erythromycin base Allergy Mild Rash Verified 10/24/19 05:39 Consultations 10/24/19 06:35 ED Decision to Admit Stat 10/24/19 08:07 Consult Urology Routine Procedures Performed Operation Date: 10/25/19 16:20 Actual Procedures p Left Ureteroscopy, Laser Lithotripsy, Basket Stone Extraction, Dilation,(Left) - DO reece Loera Left Stent Placement(Left) - DO reece Loera Retrograde Pyelogram(Left) - Malcom Ogden DO Ordered Studies 10/24/19 05:38 CT OF THE ABDOMEN AND PELVIS WITHOUT CONTRAST CLINICAL HISTORY: Left flank pain. Evaluate for stone. COMPARISON STUDY: CT of the abdomen and pelvis March 10, 2017. FINDINGS: A 6 mm x 5 mm distal left ureteral calculus results in mild to moderate left hydroureteronephrosis. Bilateral renal calculi are noted. There are no right ureteral calculi. Evaluation of the remainder of the abdomen and pelvis is suboptimal as unenhanced examination. Unenhanced images of the liver, spleen, adrenal glands and pancreas are unremarkable. There is no evidence for a bowel obstruction. Appendix is normal. No bowel wall thickening is identified on this unenhanced exam. There is colonic diverticulosis without evidence for acute diverticulitis. There are no suspicious osseous lesions. There is no lymphadenopathy. There is no fluid collection. IMPRESSION: 1. 6 mm x 5 mm distal left ureteral calculus results in mild to moderate hydroureteronephrosis. 2. Bilateral nephrolithiasis. 10/25/19 13:00 FL retrograde includes kub Routine Hospital Course (1) Hydronephrosis with ureteral calculus: Obstructive uropathy in setting of recent urinary tract infection treated with ciprofloxacin. No sepsis on arrival. Antibiotics switched to ceftriaxone -although urine culture was negative this was continued overnight perioperatively and stopped at discharge. Underwent ureteroscopy with destruction of stone and stent placement. He had kaye post-op LLQ pain and some hematuria which resolved the following morning. At time of discharge he was hemodynamically stable and afebrile and tolerating p.o. He was mentating and ambulating at baseline and oxygenating well on room air. He was sent home in stable condition with close primary care follow-up and urology follow-up in 1 to 2 months for stent removal. Additionally of note he had some concern for STDs and was checked for HIV which was negative and he was counseled on this. He was also checked for gonorrhea and chlamydia via urine, with results pending at time of discharge. He will follow-up with primary care to discuss the results of this and ensure he is still doing well as he did have some residual stent pain at time of discharge. He was counseled extensively on the importance of stopping dip tobacco. Primary care follow-up will also be important to continue this conversation. (2) Tobacco use: Total Time Total Time Spent Total Time Spent (In Minutes): 60 Total Time Includes: Examination of the Patient, Discharge Planning, Medication Reconciliation and Communication With Other Providers Discharge Plan Discharge Items Patient Disposition: Home - Self-Care Reason For Visit: HTN URGENCY,OBSTRUCTIVE UROPATHY Discharge Diagnosis: Obstructive uropathy 2/2 Left ureteral stone s/p stent placement Activity: Resume your previous activity Non-emergency contact: Primary Care Provider Call non-emergency contact if: you have any medication questions, your symptoms worsen, your pain is not controlled, your pain is worsening, your pain is unusual for you, your pain is concerning for you and you have a fever Follow-up/Referrals: Erick Ovalles MD [Primary Care Provider] - 10/30/19 10:00 am (Date & Time 10/30/2019 10:00 AM Provider Erick Ovalles MD Department Family [facility] ) Diet: Regular Addtl Attending Provider Instructions: Please take all medications as instructed on discharge list below. Please contact Dr. Ogden' office regarding and worsening of pain in your stent area if the medications you are given are not working. Please follow-up with Dr. Ovalles at the time/Date above to ensure your pain is resolved and you are doing well on all new medications with hematuria completely resolved. It is STRONGLY recommended that you quit tobacco as this is TERRIBLE for your health! It was a pleasure taking care of you! Please call if you have any questions or problems. You can reach a [facility] hospitalist on duty at [facility] 24 hours a day by calling [phone]. Take care of yourself. Melissa Lou, DO [facility] Hospitalist Pending Studies at Discharge: Yes Studies:: GC/Chlamydia results Stand-Alone Forms: My [facility] Medications and DC Order Prescriptions: New tamsulosin 0.4 mg Capsule 0.4 mg PO QAM Qty: 30 RF: 1 phenazopyridine [Pyridium] 200 mg Tablet 200 mg PO TID PRN (Reason: flank or bladder pain) Qty: 20 RF: 0 oxycodone-acetaminophen [Percocet] 5-325 mg tablet 1 tab PO Q8H PRN (Reason: severe pain) Qty: 20 RF: 0 ketorolac 10 mg tablet 10 mg PO Q6H PRN (Reason: pain) Qty: 20 RF: 0 Discontinued ciprofloxacin HCl [Cipro] 500 mg tablet 500 mg PO Q12H Qty: 14 RF: 0 Discharge Orders: Discharge Order (Routine); Ordered 10/26/19 Ordered By: Melissa Lou Admission Data Admit Date/Time: 10/24/19 07:05 Attending Provider: Melissa Lou Admit Provider: Seun Clifford Primary Care Provider: Erick Ovalles Other Providers: Seun Clifford ; Gregorio Alanis ; Ashok Pascal ; Jose Cruz Lucia I. ; Isaac Sweeney ; Valerie Quiros ; Melissa Loving ; Malcom Ogden ; Melanie Phipps Melissa A. ; Derek Ramirez ; Khloe Zavaleta ; Deana French Other Interventions: Discharge Summary Assessment (RN) Last Done: 10/26/19 12:50
[2019-10-28 06:11] LABS: Chlamydia Trach RNA NOT DETECTED (NOT DETECTED); GC (Neis gonorrhoeae) RNA NOT DETECTED (NOT DETECTED)
[2019-10-28 16:52] LABS: Codeine Urine NEGATIVE ng/mL (<50); Hydrocodone Urine NEGATIVE ng/mL (<50); Hydromor Urine NEGATIVE ng/mL (<50); Marijuana Quant, GCMS Urine 607 ng/mL (<5); Morphine Urine 1600 ng/mL (<50); Norhydrocodone Conf Ur NEGATIVE ng/mL (<50); Noroxycodone Urine NEGATIVE ng/mL (<50); Oxycodone Urine NEGATIVE ng/mL (<50); Oxymorph Urine NEGATIVE ng/mL (<50)
[2019-10-31 12:46] LABS: Component 2 DNR; Source URETER
== END 2019-10-26 13:50 | disposition home or self-care (01) ==
LOC: ED 05:19 → SUATTDRO 07:05 → 2N 07:05 → INTOOBSV 07:05 → 2N 07:31